=== PATIENT | female | born 1990 | race African-American/Black ===

== ENCOUNTER 2017-06-15 10:11 | Emergency (ER) | payer MEDICAID, SELFPAY ==
[2017-06-15 10:12] VITALS: BP 100/67; PULSE 65; RESP 17; TEMP 37.4; O2SAT 99; BMI 24.6
--- NOTE | 2017-06-15 10:23 | CT_ITS ---
STUDY: CT ABDOMEN AND PELVIS WITH CONTRAST REASON FOR EXAM: Female, 26 years old. Right lower quadrant pain. Vaginal bleeding. RADIATION DOSAGE (If Supplied By Facility): CTDIvol = ( 10.41 ) mGy, DLP = ( 378.26 ) mGycm TECHNIQUE: Transaxial images were obtained from the dome of the diaphragm to the symphysis pubis without oral contrast. 100 ml of Isovue 300 contrast was administered. Sagittal and coronal images were reconstructed. Individualized dose optimization techniques were used for this CT. COMPARISON: None. FINDINGS: The visualized lung bases are unremarkable. The visualized portions of the heart are within normal limits. Normal liver. Normal gallbladder and extrahepatic biliary system. Normal spleen. Normal pancreas. Normal bilateral adrenal glands. Normal right kidney. Normal left kidney. There is a small hiatal hernia. Normal small intestine. Normal colon. The appendix is visualized and appears normal. Small amount of free fluid in the right paracolic gutter. Inflammatory changes in the right lower quadrant. Normal abdominal aorta. Normal inferior vena cava. Normal retroperitoneum. Normal urinary bladder. Moderately enlarged inhomogeneous uterus with inhomogeneous enhancement. There is a 2.6 cm x 1.7 cm cyst in the left ovary. Small amount of free fluid in the cul-de-sac. Normal abdominal wall. Normal osseous structures. CT/Abdomen/Pelvis W IV Cont ONLY IMPRESSION: Inhomogeneous enlarged uterus with left ovarian cyst. Small amount of free fluid in the cul-de-sac and right paracolic gutter. Correlation with pelvic ultrasound is recommended. The appendix is visualized and appears to be unremarkable. If the pelvic ultrasound is unremarkable, a repeat CT scan following oral contrast is recommended. Electronically Signed: Ulises Montanez MD at 12:31 EST Tel [phone], Service support ,
--- NOTE | 2017-06-15 10:27 | ED.DCSUM_ITS ---
- ER Visit Summary Date of Service: 06/15/17 Chief Complaint: [] Abdominal pain History of Present Illness: The patient is a 26 F [] complaining of abdominal pain in the right lower quadrant since yesterday. Reports severe nausea, denies vomiting. Reports loose stool. Denies fever or chills. Does also report one episode of vaginal bleeding. No other complaints at this time. Physical Examination: [] Afebrile, vital signs stable. Young adult female no acute distress. Cardiovascular exam is regular rate and rhythm. Lungs are clear to auscultation. Abdomen is soft with tenderness in the right lower quadrant and right adnexa. There is mild voluntary guarding on exam. Remainder of exam is unremarkable. Test Results: [] CBC, BMP, UA all within normal limits. HCG negative. CT of the abdomen/pelvis with IV contrast shows an enlarged uterus with a left ovarian cyst with right free fluid in the paracolic gutter. Emergency Department Course and Treatment: [] Patient given intravenous fluids, morphine, Phenergan. On serial exam she had improvement of symptoms. CT does not reveal any significant acute pathology and patient was amenable to discharge and close follow-up with her DESIGN TECHNOLOGY TEACHER. Treatment Plan: [] Discharge, stable. Disposition: [] Discharge, stable. Impression: [] Abdominal pain Ovarian cyst This note was generated with [employer] dictation software. It may contain incorrect words, spelling, and punctuation that were not noted in review of the chart prior to signing ED Disposition - Plan for ED Patient: Chief Complaint: Abd Pain Referrals: Care Physician,No Primary [Primary Care Provider] -
[2017-06-15] MEDS: 0.9% Normal Saline 1,000 ML 1000 ML IV (10:54)
[2017-06-15 10:56] LABS: Absolute Lymphocyte Count 1.52 X10^3/ul (0.83-4.51); Absolute Neutrophil Count 1.9 X10^3/uL (2.0-7.7); Basophil# 0.01 X10^3/uL; Basophil% 0.3 % (0-1); Eosinophil# 0.04 X10^3/uL; Eosinophils% 1.1 % (0-5); Hematocrit 36.3 % (37-47); Hemoglobin 11.7 g/dl (12.0-15.0); Lymphocyte # 1.52 X10^3/ul (4.0); Mean Corp Hgb Conc 32.2 g/gl (32-36); Mean Corpuscular Volume 83.8 fL (81-99); Mean Platelet Vol. 9.8 fl (6.2-12.0); Monocyte% 7.9 % (0-10); Neutrophil # 1.93 X10^3/uL (2.7-7.7); Neutrophil % 50.7 % (47-70); Platelet Count 170 K/mm3 (150-450); RBC Distribution Width CV 13.5 % (11.6-14.6); RBC Distribution Width SD 41.1 fl (35.1-43.9); Red Blood Count 4.33 M/mm3 (4.2-5.4); White Blood Count 3.8 K/mm3 (4.4-11.0)
[2017-06-15 10:58] LABS: POSITIVE COUNT NO; POSITIVE DIFFERENTIAL NO; POSITIVE MORPHOLOGY NO
[2017-06-15 11:08] LABS: Anion Gap 6 (5-15); BUN 12 mg/dL (7-18); BUN/Creat Ratio 17.4 RATIO (10-20); Calcium,Total 8.4 mg/dL (8.5-10.1); Chloride 105 mmol/L (98-107); Creatinine, Serum 0.69 mg/dL (0.55-1.02); EST Glomerular Filtration Rate 111 mL/min (>60); Est Glom Filt Rate - Afr Amer 134 mL/min (>60); Glucose 78 mg/dL (74-106); Potassium 3.7 mmol/L (3.5-5.1); Sodium Level 139 mmol/L (136-145)
[2017-06-15 11:29] LABS: Pregnancy, Serum, hCG Quali. NEGATIVE Negative (0-9 Nonpreg)
[2017-06-15 12:08] LABS: Bacteria 0 SEEN /hpf (None Seen); Mucous, Urine 0 SEEN /hpf (<or=2+); Red Blood Cells-Urine 0 SEEN /hpf (0-5); White Blood Cells 0 SEEN /hpf (0-5)
[2017-06-15 12:09] LABS: Color, Urine Yellow (Yellow); Glucose, Dipstick Normal (Normal); Ketone-Dipstick Negative (Negative); Leukocyte Esterase-Dipstick Negative /ul (Negative); Nitrite-Dipstick Negative (Negative); Occult Blood-Urine 10 /ul (Negative); Protein-Dipstick Negative (Negative); Urine Bilirubin Dipstick Negative (Negative); Urine Clarity Clear (Clear); Urine Urobilinogen Normal (Normal); Urine pH 6.5 (5.0 - 8.0)
[2017-06-15 12:16] LABS: Squamous Epithelial Cells - UA 0-5 SEEN /hpf (5-10)
--- NOTE | 2017-06-15 12:57 | ED.DEP ---
ED Disposition - Plan for ED Patient: Chief Complaint: Abd Pain Instructions: ED Pelvic Pain [facility] Referrals: Care Physician,No Primary [Primary Care Provider] -
[2017-06-15 13:29] VITALS: BP 104/52; PULSE 60; RESP 16; O2SAT 100
== END 2017-06-15 13:29 | disposition home or self-care (01) ==
LOC: ED 10:31
PROVIDERS: Emergency Provider Emergency Medicine
DX: N83.202 Unspecified ovarian cyst, left side (principal); R10.31 Right lower quadrant pain
CPT/HCPCS: 74177; 80048; 81001; 84703; 85025; 96361; 96374; 96375; 99283; J7030; Q9967; A4216

== ENCOUNTER 2017-09-08 06:31 | Emergency (ER) | payer MEDICAID, SELFPAY ==
[2017-09-08 06:32] VITALS: BP 122/77; PULSE 71; RESP 16; TEMP 37.1; O2SAT 100; BMI 26.2
[2017-09-08 06:42] LABS: Absolute Lymphocyte Count 0.89 X10^3/ul (0.83-4.51); Absolute Neutrophil Count 1.5 X10^3/uL (2.0-7.7); Basophil# 0.01 X10^3/uL; Basophil% 0.4 % (0-1); Eosinophil# 0.02 X10^3/uL; Eosinophils% 0.7 % (0-5); Hematocrit 39.2 % (37-47); Hemoglobin 13.1 g/dl (12.0-15.0); Lymphocyte # 0.89 X10^3/ul (4.0); Lymphocyte % 33.1 % (19-41); Mean Corp Hgb Conc 33.4 g/gl (32-36); Mean Corpuscular Hgb 28.2 pg (27.0-32.0); Mean Corpuscular Volume 84.5 fL (81-99); Mean Platelet Vol. 9.3 fl (6.2-12.0); Monocyte# 0.28 X10^3/uL; Monocyte% 10.4 % (0-10); Neutrophil # 1.48 X10^3/uL (2.7-7.7); Platelet Count 179 K/mm3 (150-450); RBC Distribution Width CV 12.8 % (11.6-14.6); RBC Distribution Width SD 39.1 fl (35.1-43.9); Red Blood Count 4.64 M/mm3 (4.2-5.4); White Blood Count 2.7 K/mm3 (4.4-11.0)
[2017-09-08 06:44] LABS: POSITIVE COUNT NO; POSITIVE DIFFERENTIAL NO; POSITIVE MORPHOLOGY NO
[2017-09-08] MEDS: 0.9% Normal Saline 1,000 ML 1000 ML IV (06:46)
[2017-09-08 06:49] VITALS: BP 122/60; BP 127/69; BP 133/82; PULSE 62; PULSE 70; PULSE 85
--- NOTE | 2017-09-08 06:51 | ED.VISSUMM ---
- ER Visit Summary Date of Service: 09/08/17 Chief Complaint: Vaginal bleeding History of Present Illness: The patient is a 26 F presenting with vaginal bleeding. She states this is the normal time for her period but it is heavier than usual. It started yesterday. She denies possibility of . She has been lightheaded with no syncope. She states she has tried ibuprofen, Tylenol, Midol at home. She also complains of diffuse abdominal pain, nausea, vomiting, diarrhea. She has had one episode of both vomiting and diarrhea. Denies urinary complaints. Denies other complaints. Physical Examination: Vitals are stable. Patient is afebrile. Alert no acute distress. HEENT exam is unremarkable. Neck is supple. Lungs are clear and equal bilaterally. Heart is regular rate and rhythm. Abdomen is soft mild diffuse lower quadrant tenderness, no rebound or guarding. : small amount of blood in vaginal vault cleared with cotton tip swab. No active bleeding. No adnexal tenderness, no cervical motion tenderness Extremities are unremarkable. Skin is warm and dry. Remainder of exam is unremarkable. Emergency Department Course and Treatment: Patient given IV fluids, Toradol with improvement. Orthostatics are negative. CBC showed hemoglobin 13.1. HCG negative. Patient is resting comfortably on re-evaluation. Advised to follow-up with CHIEF OPERATOR. Advised return to ED if worsening complaints. Disposition: Discharge home Impression: Vaginal bleeding This note was generated with [employer] dictation software. It may contain incorrect words, spelling, and punctuation that were not noted in review of the chart prior to signing ED Disposition - Plan for ED Patient: Chief Complaint: Vag Bleeding Referrals: Care Physician,No Primary [Primary Care Provider] -
--- NOTE | 2017-09-08 06:54 | ED.DCSUM_ITS ---
- ER Visit Summary Date of Service: 09/08/17 Chief Complaint: Vaginal bleeding History of Present Illness: The patient is a 26 F presenting with vaginal bleeding. She states this is the normal time for her period but it is heavier than usual. It started yesterday. She denies possibility of . She has been lightheaded with no syncope. She states she has tried ibuprofen, Tylenol, Midol at home. She also complains of diffuse abdominal pain, nausea, vomiting, diarrhea. She has had one episode of both vomiting and diarrhea. Denies urinary complaints. Denies other complaints. Physical Examination: Vitals are stable. Patient is afebrile. Alert no acute distress. HEENT exam is unremarkable. Neck is supple. Lungs are clear and equal bilaterally. Heart is regular rate and rhythm. Abdomen is soft mild diffuse lower quadrant tenderness, no rebound or guarding. : small amount of blood in vaginal vault cleared with cotton tip swab. No active bleeding. No adnexal tenderness, no cervical motion tenderness Extremities are unremarkable. Skin is warm and dry. Remainder of exam is unremarkable. Emergency Department Course and Treatment: Patient given IV fluids, Toradol with improvement. Orthostatics are negative. CBC showed hemoglobin 13.1. HCG negative. Patient is resting comfortably on re-evaluation. Advised to follow- up with SOLDER MAKING SUPERVISOR. Advised return to ED if worsening complaints. Disposition: Discharge home Impression: Vaginal bleeding This note was generated with [employer] dictation software. It may contain incorrect words, spelling, and punctuation that were not noted in review of the chart prior to signing ED Disposition - Plan for ED Patient: Chief Complaint: Vag Bleeding Referrals: Care Physician,No Primary [Primary Care Provider] -
[2017-09-08] MEDS: Ketorolac 30 MG/ML Syringe IV (06:59)
[2017-09-08 07:07] LABS: Pregnancy, Serum, hCG Quali. NEGATIVE Negative (0-9 Nonpreg)
--- NOTE | 2017-09-08 07:19 | ED.DEP ---
ED Disposition - Plan for ED Patient: Chief Complaint: Vag Bleeding Instructions: ED Bleed Irregular Vaginal Referrals: Care Physician,No Primary [Primary Care Provider] - Josselin Gonzalez MD [STAFF PHYSICIAN] -
[2017-09-08 08:20] VITALS: BP 118/68; PULSE 72; RESP 18
== END 2017-09-08 08:22 | disposition home or self-care (01) ==
PROVIDERS: Emergency Provider Emergency Medicine
DX: N93.9 Abnormal uterine and vaginal bleeding, unspecified (principal)
CPT/HCPCS: 84703; 85025; 96361; 96374; 99285; J7030; A4216

== ENCOUNTER 2018-04-01 09:33 | Emergency (ER) | payer MEDICAID, SELFPAY ==
[2018-04-01 09:34] VITALS: BP 114/73; PULSE 122; RESP 18; TEMP 37.3; O2SAT 99; BMI 27.4
[2018-04-01] MEDS: Ketorolac 30 MG/ML Syringe IV (10:08)
[2018-04-01] MEDS: 0.9% Normal Saline 1,000 ML 1000 ML IV (10:08)
[2018-04-01] MEDS: MethylPREDNISolone 125 MG/2 ML Vial IV (10:08)
--- NOTE | 2018-04-01 10:08 | ED.DCSUM_ITS ---
- ER Visit Summary Date of Service: 04/01/18 Chief Complaint: Sore throat History of Present Illness: The patient is a 27 F he has had a sore throat for the past 3 days. She was seen at the urgent care on the and had a positive rapid strep test. She has been on amoxicillin. She is also on eyedrops for pinkeye. Patient states her throat pain is worse today. She has not been eating and drinking much. She was having fevers, but those seem to be resolved. Physical Examination: Blood pressure is 114/73, temperature 99.2 TA, heart rate 122, respiratory rate 18, pulse ox 99% on room air. Patient is sitting upright in the bed with the head of the bed elevated approximately 45 degrees. She speaks with a strong voice and is tolerating secretions well. Head and neck examination reveals dry mucous membranes. TMs are clear bilaterally. Uvula is midline. She has mild posterior pharyngeal irritation without significant edema. Heart is slightly tachycardic and regular. Lung sounds are clear. Abdomen is soft and nontender. Test Results: [] Emergency Department Course and Treatment: Patient was given a liter of IV fluids along with Toradol and Solu-Medrol. On repeat evaluation patient is really improved. Heart rate is 97. She will be discharged with instructions to increase fluids and use Tylenol or ibuprofen for pain. Treatment Plan: [] Disposition: Discharge Impression: Strep pharyngitis This note was generated with [employer] dictation software. It may contain incorrect words, spelling, and punctuation that were not noted in review of the chart prior to signing ED Disposition - Plan for ED Patient: Chief Complaint: Sore Throat Referrals: Care Physician,No Primary [Primary Care Provider] -
[2018-04-01 10:14] VITALS: RESP 16; TEMP 37.2
--- NOTE | 2018-04-01 10:58 | ED.DEP ---
ED Disposition - Plan for ED Patient: Disposition: Home or Assisted Living Chief Complaint: Sore Throat Instructions: ED Strep Pharyngitis Conf Referrals: Desi Morales, PUBLIC RELATIONS MANAGER-C [Nurse Practitioner] - 1 Week
--- NOTE | 2018-04-01 11:01 | DCINST.ED_ITS ---
ED Disposition - Plan for ED Patient: Disposition: Home or Assisted Living Chief Complaint: Sore Throat Instructions: ED Strep Pharyngitis Conf Referrals: Desi Morales, LIME MIXER-C [Nurse Practitioner] - 1 Week
[2018-04-01 11:17] VITALS: BP 124/80; PULSE 87; RESP 16; TEMP 36.6; TEMP 36.7; O2SAT 99
--- OUTSIDE RECORDS SUMMARY | 2018-07-04 13:05 | XMS RPT_ITS ---
:1990 Author Organization [facility] Care Team Providers Name Role Phone BESS SHEEHAN (COOKING TEACHER) Attending Unavailable Primay Care Physicia, No Primary Care Unavailable Sridevi Butt Attending Unavailable Primay Care Physicia, No Primary Care Unavailable Bryan Palencia Attending Unavailable Primay Care Physicia, No Primary Care Unavailable Wendi Henry Attending Unavailable PROBLEMS PROBLEMS No Problem Records FoundPROCEDURES PROCEDURES No Procedure Records FoundRESULTS RESULTS EMERGENCY DEPARTMENT Observed: 04/01/2018 Status: F Source: [place] SUMMARY 3:42 PM [facility] REPOSITORY [facility] Medical Records Department [address] [place] [address] Emergency Department Summary 04/01/18 1006 MR#: [id number] Acct: [id number] Name: SHARI SINHA Rep #: [id number] : 1990 27 From: Sridevi Butt MD PCP: Care Physician, No Primary Status: DEP ER - ER Visit Summary Date of Service: 04/01/18 Chief Complaint: Sore throat History of Present Illness: The patient is a 27 F he has had a sore throat for the past 3 days. She was seen at the urgent care on the and had a positive rapid strep test. She has been on amoxicillin. She is also on eyedrops for pinkeye. Patient states her throat pain is worse today. She has not been eating and drinking much. She was having fevers, but those seem to be resolved. Physical Examination: Blood pressure is 114/73, temperature 99.2 TA, heart rate 122, respiratory rate 18, pulse ox 99% on room air. Patient is sitting upright in the bed with the head of the bed elevated approximately 45 degrees. She speaks with a strong voice and is tolerating secretions well. Head and neck examination reveals dry mucous membranes. TMs are clear bilaterally. Uvula is midline. She has mild posterior pharyngeal irritation without significant edema. Heart is slightly tachycardic and regular. Lung sounds are clear. Abdomen is soft and nontender. Test Results: [] Emergency Department Course and Treatment: Patient was given a liter of IV fluids along with Toradol and Solu-Medrol. On repeat evaluation patient is really improved. Heart rate is 97. She will be discharged with instructions to increase fluids and use Tylenol or ibuprofen for pain. Treatment Plan: [] Disposition: Discharge Impression: Strep pharyngitis This note was generated with [employer] dictation software. It may contain incorrect words, spelling, and punctuation that were not noted in review of the chart prior to signing ED Disposition - Plan for ED Patient: Chief Complaint: Sore Throat Referrals: Care Physician,No Primary [Primary Care Provider] - What to do if you have Problems For any increased pain, shortness of breath, bleeding, nausea or vomiting, chest pain, or any unexpected problems, contact your Primary Care Provider. Call [facility] ([phone]) or report to the closest Emergency Room. Call 911 if necessary. 04/01/18 2048 <Electronically signed by Sridevi Butt MD> Date Sridevi Butt MD Cosigner Signature (If Indicated): Date CC: No Primary Care Physician DISCHARGE INSTRUCTION Observed: 04/01/2018 Status: F Source: [place] 11:01 AM [facility] REPOSITORY [facility] Medical Records Department [address] [place] [address] Discharge Instruction 04/01/18 1058 MR#: [id number] Acct: [id number] Name: SHAIR SINHA Rep #: [id number] : 1990 27 From: Sridevi Butt MD PCP: Care Physician, No Primary Status: REG ER ED Disposition - Plan for ED Patient: Disposition: Home or Assisted Living Chief Complaint: Sore Throat Instructions: ED Strep Pharyngitis Conf Referrals: Desi Morales, BOILER ROOM OPERATOR-C [Nurse Practitioner] - 1 Week What to do if you have Problems For any increased pain, shortness of breath, bleeding, nausea or vomiting, chest pain, or any unexpected problems, contact your Primary Care Provider. Call [facility] ([phone]) or report to the closest Emergency Room. Call 911 if necessary. 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 Denies any otc treatment for symptoms. Review of Systems Constitutional: Positive for fever. Negative for chills and malaise/fatigue. HENT: Negative for congestion, ear pain and sore throat. Eyes: Positive for discharge and redness. Respiratory: Negative for cough. Gastrointestinal: Positive for vomiting. Negative for abdominal pain, diarrhea and nausea. Musculoskeletal: Positive for myalgias. Skin: Negative for rash. Neurological: Positive for headaches. All other systems reviewed and are negative. PAST MEDICAL HISTORY Diagnosis Date - Allergic rhinitis, cause unspecified Allergic rhinitis - Asthma PAST SURGICAL HISTORY Procedure Laterality Date - REMOVAL ADENOIDS,PRIMARY,<12 Y/O 2000 Adenoidectomy ALLERGIES Enviromental [Other] MEDICATIONS amoxicillin (AMOXIL) 875 mg tablet Take 1 tablet by mouth twice daily for 10 days. FLUoxetine (PROZAC) 20 mg capsule Take 1 capsule by mouth once daily. lisdexamfetamine (VYVANSE) 20 mg capsule Take 1 capsule by mouth once daily for 30 days. ofloxacin (OCUFLOX) 0.3 % ophthalmic solution Use 2 Drops in both eyes four times daily for 5 days. FAMILY HISTORY Problem Relation Age of Onset - Diabetes Maternal Grandmother Social History Substance Use Topics - Smoking status: Never Smoker - Smokeless tobacco: Not on file - Alcohol use No Objective Physical Exam Constitutional: She is well-developed, well-nourished, and in no distress. HENT: Head: Normocephalic. Right Ear: Tympanic membrane, external ear and ear canal normal. Left Ear: Tympanic membrane, external ear and ear canal normal. Nose: Nose normal. Right sinus exhibits no maxillary sinus tenderness and no frontal sinus tenderness. Left sinus exhibits no maxillary sinus tenderness and no frontal sinus tenderness. Mouth/Throat: Posterior oropharyngeal erythema (soft palate petechiae) present. Eyes: Pupils are equal, round, and reactive to light. EOM are normal. Right eye exhibits discharge. Left eye exhibits discharge. Right conjunctiva is injected. Left conjunctiva is injected. Visual acuity intact Neck: Normal range of motion. Cardiovascular: Normal rate, regular rhythm and normal heart sounds. Pulmonary/Chest: Effort normal and breath sounds normal. No respiratory distress. She has no wheezes. Abdominal: Soft. Bowel sounds are normal. She exhibits no distension. There is no tenderness. Lymphadenopathy: She has no cervical adenopathy. Skin: Skin is warm and dry. No rash noted. Nursing note and vitals reviewed. ASSESSMENT/PLAN: 1. Strep pharyngitis - ICD9: 034.0, ICD10: J02.0 (primary diagnosis) - suspect strep - Rapid Strep positive in the office today - Amoxil - Discussed supportive care treatment with fluids, rest and analgesia. - The patient may also use warm salt water gargles, throat lozenges and/or OTC throat spray as needed. - The patient should follow up in 3-5 days if symptoms persist or worsen - Call back if drooling, increased temperature, symptoms of dehydration and/or still sick in one week - RAPID STREP TEST B/O 2. Acute bacterial conjunctivitis of both eyes - ICD9: 372.03, ICD10: H10.33 Bacterial - see medication orders - course and contagiousness issues discussed, including hand washing. - Instructed to call if high fever, development of periorbital redness or swelling, eye pain, visual changes, concerns or if symptoms persist. Prescription instructions reviewed with patient as applicable. Patient advised if symptoms do not improve or if symptoms worsen sooner, to contact their primary care physician. Potential red flag symptoms discussed with the patient. Reviewed appropriate action plan to take if red flag symptoms occur. Patient agreeable to treatment plan. Ruddy Ford APRN.CNP CNOV Observed: 03/30/2018 Status: COMPLETED Source: [place] 6:45 PM [facility] REPOSITORY Office Visit ([facility]) SHARI SINHA ([id number]) [address] [facility] Date Time Provider Department 03/30/18 6:45 PM RUDDY FORD (BOILER ROOM OPERATOR) [facility] During your visit today, we recorded the following information about you: Temperature Pulse Blood pressure Weight 101.2 degrees 86/minute 118/60 68.5 kg Ruddy Ford APRN.CNP 03/30/2018 7:21 PM Signed CONJUNCTIVITIS GENERAL INFORMATION: Conjunctivitis is also known as pink eye. It is an irritation of the underside of the eyelid and the white part of the eye. Conjunctivitis can be caused by infection, chemical irritation, or allergy. If infectious, it is very contagious. INSTRUCTIONS: The doctor has prescribed antibiotic drops or ointment. Use them as prescribed. Do not touch the dropper to the eye. Throw out the medication after completing treatment. If the doctor only prescribed the medication to be placed in one eye, and the other eye starts to bother you with the same symptoms, you may treat it in the same fashion. To ease discomfort, apply a warm or cool clean washcloth to your eye several times a day for 10 to 20 minutes. Gently wipe away discharge from the eyes with tissues. Wash your hands often with soap and use paper towels to dry them. Do not share towels, washcloths, or pillows. This could spread infection. Do not use eye make-up until the infection has resolved. Keep contact lenses out of eyes until the irritation is gone. Discard any eye make-up which you may have contaminated before the infection was diagnosed, and any eye make-up older than one year. Children should not return to school or daycare until the eye is no longer pink. Do not drive or operate machinery if your vision is blurred. Wear sunglasses if your eyes are sensitive to the light. CONTACT YOUR DOCTOR IF YOU OR YOUR CHILD NOTICE: *The eye is still pink 3 days after starting treatment with medicine. *Pain in the eye increases. *The redness is spreading. *Vision becomes blurred. *You have a temperature over 100.5 F (38 C). What is strep throat? Strep throat is an infection caused by a specific type of bacteria, Streptococcus. When your child has a strep throat, the tonsils are usually very inflamed, and the inflammation may affect the surrounding part of the throat as well. Symptoms Strep throat is caused by a bacterium called Streptococcus pyogenes. To some extent, the symptoms of strep throat depend on the child?s age. - Infants with strep infections may have only a low fever and a thickened or bloody nasal discharge. - Toddlers (ages one to three) also may have a thickened or bloody nasal discharge with a fever. Such children are usually quite cranky, have no appetite, and often have swollen glands in the neck. Sometimes toddlers will complain of tummy pain instead of a sore throat. - Children over three years of age with strep are often more ill; they may have an extremely painful throat, fever over 102 degrees Fahrenheit (38.9 degrees Celsius), swollen glands in the neck, and pus on the tonsils. It?s important to be able to distinguish a strep throat from a viral sore throat, because strep infections are treated with antibiotics. When to call the educator senior clinical If your child has a sore throat that persists (not one that goes away after her first drink in the morning), whether or not it is accompanied by fever, headache, stomachache, or extreme fatigue, you should call your educator senior clinical. That call should be made even more urgently if your child seems extremely ill, or if she has difficulty breathing or extreme trouble swallowing (causing her to drool). This may indicate a more serious infection. Treatment If the strep test shows that your child does have strep throat, your educator senior clinical will prescribe an antibiotic to be taken by mouth or by injection. If your child is given the oral medication, it?s very important that she take it for the full course, as prescribed, even if the symptoms get better or go away. If a child?s strep throat is not treated with antibiotics, or if she doesn?t complete the treatment, the infection may worsen or spread to other parts of her body, leading to conditions such as abscesses of the tonsils or kidney problems. Untreated strep infections also can lead to rheumatic fever, a disease that affects the heart. However, rheumatic fever is rare in the [place] and in children under five years old. Prevention Most types of throat infections are contagious, being passed primarily through the air on droplets of moisture or on the hands of infected children or adults. For that reason, it makes sense to keep your child away from people who have symptoms of this condition. However, most people are contagious before their first symptoms appear, so often there?s really no practical way to prevent your child from buffy the disease. In the past when a child had several sore throats, her tonsils might have been removed in an attempt to prevent further infections. But this operation, called a tonsillectomy, is recommended today only for the most severely affected children. Even in difficult cases, where there is repeated strep throat, antibiotic treatment is usually the best solution. 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 Denies any otc treatment for symptoms. Review of Systems Constitutional: Positive for fever. Negative for chills and malaise/fatigue. HENT: Negative for congestion, ear pain and sore throat. Eyes: Positive for discharge and redness. Respiratory: Negative for cough. Gastrointestinal: Positive for vomiting. Negative for abdominal pain, diarrhea and nausea. Musculoskeletal: Positive for myalgias. Skin: Negative for rash. Neurological: Positive for headaches. All other systems reviewed and are negative. PAST MEDICAL HISTORY Diagnosis Date - Allergic rhinitis, cause unspecified Allergic rhinitis - Asthma PAST SURGICAL HISTORY Procedure Laterality Date - REMOVAL ADENOIDS,PRIMARY,<12 Y/O 2000 Adenoidectomy ALLERGIES Enviromental [Other] MEDICATIONS amoxicillin (AMOXIL) 875 mg tablet Take 1 tablet by mouth twice daily for 10 days. FLUoxetine (PROZAC) 20 mg capsule Take 1 capsule by mouth once daily. lisdexamfetamine (VYVANSE) 20 mg capsule Take 1 capsule by mouth once daily for 30 days. ofloxacin (OCUFLOX) 0.3 % ophthalmic solution Use 2 Drops in both eyes four times daily for 5 days. FAMILY HISTORY Problem Relation Age of Onset - Diabetes Maternal Grandmother Social History Substance Use Topics - Smoking status: Never Smoker - Smokeless tobacco: Not on file - Alcohol use No Objective Physical Exam Constitutional: She is well-developed, well-nourished, and in no distress. HENT: Head: Normocephalic. Right Ear: Tympanic membrane, external ear and ear canal normal. Left Ear: Tympanic membrane, external ear and ear canal normal. Nose: Nose normal. Right sinus exhibits no maxillary sinus tenderness and no frontal sinus tenderness. Left sinus exhibits no maxillary sinus tenderness and no frontal sinus tenderness. Mouth/Throat: Posterior oropharyngeal erythema (soft palate petechiae) present. Eyes: Pupils are equal, round, and reactive to light. EOM are normal. Right eye exhibits discharge. Left eye exhibits discharge. Right conjunctiva is injected. Left conjunctiva is injected. Visual acuity intact Neck: Normal range of motion. Cardiovascular: Normal rate, regular rhythm and normal heart sounds. Pulmonary/Chest: Effort normal and breath sounds normal. No respiratory distress. She has no wheezes. Abdominal: Soft. Bowel sounds are normal. She exhibits no distension. There is no tenderness. Lymphadenopathy: She has no cervical adenopathy. Skin: Skin is warm and dry. No rash noted. Nursing note and vitals reviewed. ASSESSMENT/PLAN: 1. Strep pharyngitis - ICD9: 034.0, ICD10: J02.0 (primary diagnosis) - suspect strep - Rapid Strep positive in the office today - Amoxil - Discussed supportive care treatment with fluids, rest and analgesia. - The patient may also use warm salt water gargles, throat lozenges and/or OTC throat spray as needed. - The patient should follow up in 3-5 days if symptoms persist or worsen - Call back if drooling, increased temperature, symptoms of dehydration and/or still sick in one week - RAPID STREP TEST B/O 2. Acute bacterial conjunctivitis of both eyes - ICD9: 372.03, ICD10: H10.33 Bacterial - see medication orders - course and contagiousness issues discussed, including hand washing. - Instructed to call if high fever, development of periorbital redness or swelling, eye pain, visual changes, concerns or if symptoms persist. Prescription instructions reviewed with patient as applicable. Patient advised if symptoms do not improve or if symptoms worsen sooner, to contact their primary care physician. Potential red flag symptoms discussed with the patient. Reviewed appropriate action plan to take if red flag symptoms occur. Patient agreeable to treatment plan. Ruddy Ford, [place].COOKING TEACHER Referring Provider: SELF [200] Allergies As of Date: 03/30/2018 Noted Allergy Reaction ENVIROMENTAL [Other] 12/22/2005 5 - Intolerance Date Reviewed: 03/30/2018 Reviewed by: Ruddy Stanley (Luz Marina) Farhan - Fully Assessed Reason for Visit: Conjunctivitis [24] Cmt: times 2 days Vomiting [120] Cmt: started today Primary Visit Diagnosis:Strep pharyngitis [J02.0] Other Visit Diagnosis:Acute bacterial conjunctivitis of both eyes [H10.33] Order(s):RAPID STREP TEST B/O [[id number]] Order #: [id number] amoxicillin (AMOXIL) 875 mg tabletTake 1 tablet by mouth twice daily for 10 days.Disp: 20 tabletRfl: 0 ofloxacin (OCUFLOX) 0.3 % ophthalmic solutionUse 2 Drops in both eyes four times daily for 5 days.Disp: 1 BottleRfl: 0 Prescriptions as of 03/30/2018 Sig: AMOXICILLIN 875 MG TABLET Take 1 tablet by mouth twice * FLUOXETINE 20 MG CAPSULE Take 1 capsule by mouth once * LISDEXAMFETAMINE 20 MG CAPSULE Take 1 capsule by mouth once * OFLOXACIN 0.3 % EYE DROPS Use 2 Drops in both eyes four* Problem List As Of Date 03/30/2018 Noted Resolved ALLERGIC RHINITIS NOS [J30.9] INVALID FOR* ASTHMA UNSPECIFIED [J45.909] INVALID FOR* Adult attention deficit disorder [F98.8] INVALID FOR* Anxiety and depression [F41.9, F32.9] INVALID FOR* Other instructions from your clinician: CONJUNCTIVITIS GENERAL INFORMATION: Conjunctivitis is also known as pink eye. It is an irritation of the underside of the eyelid and the white part of the eye. Conjunctivitis can be caused by infection, chemical irritation, or allergy. If infectious, it is very contagious. INSTRUCTIONS: The doctor has prescribed antibiotic drops or ointment. Use them as prescribed. Do not touch the dropper to the eye. Throw out the medication after completing treatment. If the doctor only prescribed the medication to be placed in one eye, and the other eye starts to bother you with the same symptoms, you may treat it in the same fashion. To ease discomfort, apply a warm or cool clean washcloth to your eye several times a day for 10 to 20 minutes. Gently wipe away discharge from the eyes with tissues. Wash your hands often with soap and use paper towels to dry them. Do not share towels, washcloths, or pillows. This could spread infection. Do not use eye make-up until the infection has resolved. Keep contact lenses out of eyes until the irritation is gone. Discard any eye make-up which you may have contaminated before the infection was diagnosed, and any eye make-up older than one year. Children should not return to school or daycare until the eye is no longer pink. Do not drive or operate machinery if your vision is blurred. Wear sunglasses if your eyes are sensitive to the light. CONTACT YOUR DOCTOR IF YOU OR YOUR CHILD NOTICE: *The eye is still pink 3 days after starting treatment with medicine. *Pain in the eye increases. *The redness is spreading. *Vision becomes blurred. *You have a temperature over 100.5 F (38 C). What is strep throat? Strep throat is an infection caused by a specific type of bacteria, Streptococcus. When your child has a strep throat, the tonsils are usually very inflamed, and the inflammation may affect the surrounding part of the throat as well. Symptoms Strep throat is caused by a bacterium called Streptococcus pyogenes. To some extent, the symptoms of strep throat depend on the child?s age. - Infants with strep infections may have only a low fever and a thickened or bloody nasal discharge. - Toddlers (ages one to three) also may have a thickened or bloody nasal discharge with a fever. Such children are usually quite cranky, have no appetite, and often have swollen glands in the neck. Sometimes toddlers will complain of tummy pain instead of a sore throat. - Children over three years of age with strep are often more ill; they may have an extremely painful throat, fever over 102 degrees Fahrenheit (38.9 degrees Celsius), swollen glands in the neck, and pus on the tonsils. It?s important to be able to distinguish a strep throat from a viral sore throat, because strep infections are treated with antibiotics. When to call the educator senior clinical If your child has a sore throat that persists (not one that goes away after her first drink in the morning), whether or not it is accompanied by fever, headache, stomachache, or extreme fatigue, you should call your educator senior clinical. That call should be made even more urgently if your child seems extremely ill, or if she has difficulty breathing or extreme trouble swallowing (causing her to drool). This may indicate a more serious infection. Treatment If the strep test shows that your child does have strep throat, your educator senior clinical will prescribe an antibiotic to be taken by mouth or by injection. If your child is given the oral medication, it?s very important that she take it for the full course, as prescribed, even if the symptoms get better or go away. If a child?s strep throat is not treated with antibiotics, or if she doesn?t complete the treatment, the infection may worsen or spread to other parts of her body, leading to conditions such as abscesses of the tonsils or kidney problems. Untreated strep infections also can lead to rheumatic fever, a disease that affects the heart. However, rheumatic fever is rare in the [place] and in children under five years old. Prevention Most types of throat infections are contagious, being passed primarily through the air on droplets of moisture or on the hands of infected children or adults. For that reason, it makes sense to keep your child away from people who have symptoms of this condition. However, most people are contagious before their first symptoms appear, so often there?s really no practical way to prevent your child from buffy the disease. In the past when a child had several sore throats, her tonsils might have been removed in an attempt to prevent further infections. But this operation, called a tonsillectomy, is recommended today only for the most severely affected children. Even in difficult cases, where there is repeated strep throat, antibiotic treatment is usually the best solution. Prescriptions ordered this encounter Disp Refills Start End AMOXICILLIN 875 MG TABLET 20 t* 0 03/30/2018 04/09/2018 Route: ORAL Sig: Take 1 tablet by mouth twice daily for 10 days. OFLOXACIN 0.3 % EYE DROPS 1 Alexey* 0 03/30/2018 04/04/2018 Route: BOTH EYES Sig: Use 2 Drops in both eyes four times daily for 5 days. Disposition: Return if symptoms worsen or fail to improve. Follow-up and Disposition History Recorded Letter Text Ruddy Ford APRN.[facility] Urgent Care [address] [facility] [address] Dept: [phone] 03/30/2018 Shari Sinha [address] [facility] [id number] [facility] [id number] To Whom it May Concern: This is to certify that Shari Sinha was seen at our office for medical care. Shari may return to work on 04/01/2018. If you have any questions please feel free to call. Sincerely: Ruddy Ford APRN.[facility] Encounter Status:Closed by RUDDY FORD on 03/30/18 PROGRESS Observed: 11/03/2017 Status: COMPLETED Source: [place] 9:07 AM [facility] REPOSITORY HNO ID: [id number] Author: Bess Abbasi) Sissy Service: (none) Author Type: Nurse Practitioner Type: Progress Notes Filed: 11/03/2017 11:53 AM Note Text: This is a 26 year old female who presents today with: Patient presents with: Physical HISTORY OF PRESENT ILLNESS: Shari Sinha is a 26 year old female. 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 She would like to restart vyvanse and prozac. She reports she stopped these in February, for no reason in particular, just in a mood. 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 Refers that she has been having trouble with work and meeting deadlines and completing paperwork. She reports that she has been reprimanded for not having paperwork done. She reports that her boss told her that she needs to focus more. She also reports depression has been worse. She has been less social. Eating okay. Sleeping okay, other than she doesn't desire to get out of bed in the morning. Reports when on the medication, mood was better. She doesn't isolate/withdrawal so much when on the medication. She denies suicidal/homicidal ideation. CP PHQ9 04/15/2016 04/29/2016 09/01/2016 09/29/2016 11/03/2017 Little interest or pleasure 3 - Nearly every day 1 - Several days 3 - Nearly every day 1 - Several days 3 - Nearly every day Feeling down, depressed, hopeless 3 - Nearly every day 1 - Several days 3 - Nearly every day 1 - Several days 3 - Nearly every day Trouble falling or staying asleep, sleeping too much 3 - nearly every day 2 - More than half the days 1 - Several days 0 - Not at all 3 - nearly every day Feeling tired, having little energy 3 - Nearly every day 1 - Several days 3 - Nearly every day 2 - More than half the days 3 - Nearly every day Poor appetite or overeating 3 - Nearly every day 0 - Not at all 2 - More than half the days 2 - More than half the days 3 - Nearly every day Feeling bad about yourself, failure or you have let yourself/family down 3 - Nearly every day 1 - Several days 3 - Nearly every day 2 - More than half the days 3 - Nearly every day Trouble concentrating on things 3 - Nearly every day 1 - Several days 3 - Nearly every day 3 - Nearly every day 3 - Nearly every day Moving or speaking so slowly, or fidgety or restless 3 - Nearly every day 0 - Not at all 3 - Nearly every day 2 - More than half the days 3 - Nearly every day Thoughts that you would be better off , or of hurting yourself in some way 2 - More than half the days 1 - Several days 3 - Nearly every day 2 - More than half the days 1 - Several days How difficult have these problems made things Extremely difficult Somewhat difficult Extremely difficult Very difficult Interpretation of Total Score 20-27 Severe depression 5-9 Mild depression 20-27 Severe depression 15-19 Moderately severe depression 20-27 Severe depression MACY-7 ANXIETY SCALE 04/29/2016 09/01/2016 09/29/2016 11/03/2017 FEELING NERVOUS,ANXIOUS,OR ON EDGE 2 Over half the days 3 Nearly every day 3 Nearly every day 3 Nearly every day NOT BEING ABLE TO STOP OR CONTROL WORRYING 3 Nearly every day 3 Nearly every day 2 Over half the days 3 Nearly every day WORRYING TOO MUCH ABOUT DIFFERENT THINGS 3 Nearly every day 3 Nearly every day 3 Nearly every day 3 Nearly every day TROUBLE RELAXING 3 Nearly every day 3 Nearly every day 3 Nearly every day 3 Nearly every day BEING SO RESTLESS THAT IT'S HARD TO SIT STILL 1 Several days 3 Nearly every day 3 Nearly every day 3 Nearly every day BEING EASILY ANNOYED OR IRRITABLE 3 Nearly every day 3 Nearly every day 1 Several days 3 Nearly every day FEELING AFRAID IF SOMETHING AWFUL MIGHT HAPPEN 3 Nearly every day 3 Nearly every day 3 Nearly every day 3 Nearly every day GAD7 SCORE 18 21 18 21 IF YOU CHECKED OFF ANY PROBLEMS Very difficult Extremely difficult Very difficult REVIEW OF SYSTEMS GENERAL: No weight loss, malaise or fevers/chills HEENT: Negative for frequent or significant headaches, No changes in hearing or vision. NECK: Negative for lumps, goiter, pain and significant neck swelling RESPIRATORY: Negative for cough, hemoptysis, wheezing, dyspnea or shortness of breath CARDIOVASCULAR: Negative for chest pain, leg swelling, orthopnea, or palpitations GI: No nausea, vomiting, or diarrhea/constipation. No hematochezia/melena. No heartburn or reflux symptoms. : No history of dysuria, frequency or incontinence MUSCULOSKELETAL: Negative for joint pain or swelling. SKIN: Negative for lesions, rash, and itching ENDOCRINE: Negative for cold or heat intolerance, polyuria, polydipsia and goiter NEURO: No history of headaches, syncope, paralysis, seizures or tremors PAST MEDICAL HISTORY: PAST MEDICAL HISTORY Diagnosis Date - Allergic rhinitis, cause unspecified Allergic rhinitis - Asthma PAST SURGICAL HISTORY Procedure Laterality Date - REMOVAL ADENOIDS,PRIMARY,<14 Y/O 2000 Adenoidectomy ALLERGIES Enviromental [Other] MEDICATIONS Current Outpatient Prescriptions: lisdexamfetamine (VYVANSE) 30 mg capsule Take 1 capsule by mouth once daily. Ok to fill on or after 03/05/2017 FLUoxetine HCl (PROZAC) 40 mg capsule Take 1 capsule by mouth once daily. No current facility-administered medications for this visit. FAMILY HISTORY Problem Relation Age of Onset - Diabetes Maternal Grandmother Social History Marital status: Single Spouse name: Years of education: Number of children: Social History Main Topics Smoking status: Never Smoker Alcohol use: No Drug use: No EXAM: BP 110/72 (BP Site: Right Arm, BP Position: Sitting, BP Cuff Size: Regular Adult) Pulse 70 Resp 14 Ht 161.3 cm (5' 3.5) Wt 66.7 kg (147 lb) BMI 25.63 kg/m? PHYSICAL EXAM: General Appearance: Well appearing, alert, in no acute distress, well-hydrated, well nourished.. Skin: Skin color, texture, turgor normal, no suspicious rashes or lesions. Head: Normocephalic, no masses, lesions, tenderness or abnormalities. Eyes: Anicteric sclera. Extraocular movements are intact. . Neck: Supple, no adenopathy; thyroid symmetric, normal size. Lungs: Lungs clear to auscultation. No wheezing, rhonchi, rales. Heart: RRR without murmur, gallop, or rubs. No ectopy. Abdomen: Abdomen soft, non-tender. Bowel sounds normal. No masses, organomegaly. Extremities: No deformities, edema, skin discoloration, clubbing or cyanosis. Good capillary refill. Peripheral Pulses: Normal. Neurologic: Gait normal. ASSESSMENT/PLAN: 1. Physical exam, pre-employment - ICD9: V70.5, ICD10: Z02.1 (primary diagnosis) Healthy exam. Due for tdap. Form completed. - TDAP VACCINE AGE 7+ IM 2. Anxiety and depression - ICD9: 300.00, 311, ICD10: F41.9, F32.9 Restart prozac. Follow-up in a month. - FLUOXETINE 20 MG CAPSULE 3. Adult attention deficit disorder - ICD9: 314.00, ICD10: F98.8 Restart vyvanse. Medication contract signed. Recheck in a month. - LISDEXAMFETAMINE 20 MG CAPSULE Discussed treatment plan and patient voices understanding. Patient's questions answered appropriately. Medications and potential side effects were discussed and patient voices understanding. Return to the office as scheduled or as needed for worsening/no improvement. VENTURA GraciaOV Observed: 11/03/2017 Status: COMPLETED Source: [place] 9:00 AM [facility] REPOSITORY Office Visit (FAMPWS) SHARI SINHA ([id number]) [address] [facility] Date Time Provider Department 11/03/17 9:00 AM BESS SHEEHAN (KARLA) [facility] During your visit today, we recorded the following information about you: Pulse Respiration Blood pressure Weight 70/minute 14/minute 110/72 66.7 kg Height 1.613 m Bess Sheehan APRN.CNP 11/03/2017 11:53 AM Signed This is a 26 year old female who presents today with: Patient presents with: Physical HISTORY OF PRESENT ILLNESS: Shari M David is a 26 year old female. 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 She would like to restart vyvanse and prozac. She reports she stopped these in February, for no reason in particular, just in a mood. 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 Refers that she has been having trouble with work and meeting deadlines and completing paperwork. She reports that she has been reprimanded for not having paperwork done. She reports that her boss told her that she needs to focus more. She also reports depression has been worse. She has been less social. Eating okay. Sleeping okay, other than she doesn't desire to get out of bed in the morning. Reports when on the medication, mood was better. She doesn't isolate/withdrawal so much when on the medication. She denies suicidal/homicidal ideation. CP PHQ9 04/15/2016 04/29/2016 09/01/2016 09/29/2016 11/03/2017 Little interest or pleasure 3 - Nearly every day 1 - Several days 3 - Nearly every day 1 - Several days 3 - Nearly every day Feeling down, depressed, hopeless 3 - Nearly every day 1 - Several days 3 - Nearly every day 1 - Several days 3 - Nearly every day Trouble falling or staying asleep, sleeping too much 3 - nearly every day 2 - More than half the days 1 - Several days 0 - Not at all 3 - nearly every day Feeling tired, having little energy 3 - Nearly every day 1 - Several days 3 - Nearly every day 2 - More than half the days 3 - Nearly every day Poor appetite or overeating 3 - Nearly every day 0 - Not at all 2 - More than half the days 2 - More than half the days 3 - Nearly every day Feeling bad about yourself, failure or you have let yourself/family down 3 - Nearly every day 1 - Several days 3 - Nearly every day 2 - More than half the days 3 - Nearly every day Trouble concentrating on things 3 - Nearly every day 1 - Several days 3 - Nearly every day 3 - Nearly every day 3 - Nearly every day Moving or speaking so slowly, or fidgety or restless 3 - Nearly every day 0 - Not at all 3 - Nearly every day 2 - More than half the days 3 - Nearly every day Thoughts that you would be better off , or of hurting yourself in some way 2 - More than half the days 1 - Several days 3 - Nearly every day 2 - More than half the days 1 - Several days How difficult have these problems made things Extremely difficult Somewhat difficult Extremely difficult Very difficult Interpretation of Total Score 20-27 Severe depression 5-9 Mild depression 20-27 Severe depression 15-19 Moderately severe depression 20-27 Severe depression MACY-7 ANXIETY SCALE 04/29/2016 09/01/2016 09/29/2016 11/03/2017 FEELING NERVOUS,ANXIOUS,OR ON EDGE 2 Over half the days 3 Nearly every day 3 Nearly every day 3 Nearly every day NOT BEING ABLE TO STOP OR CONTROL WORRYING 3 Nearly every day 3 Nearly every day 2 Over half the days 3 Nearly every day WORRYING TOO MUCH ABOUT DIFFERENT THINGS 3 Nearly every day 3 Nearly every day 3 Nearly every day 3 Nearly every day TROUBLE RELAXING 3 Nearly every day 3 Nearly every day 3 Nearly every day 3 Nearly every day BEING SO RESTLESS THAT IT'S HARD TO SIT STILL 1 Several days 3 Nearly every day 3 Nearly every day 3 Nearly every day BEING EASILY ANNOYED OR IRRITABLE 3 Nearly every day 3 Nearly every day 1 Several days 3 Nearly every day FEELING AFRAID IF SOMETHING AWFUL MIGHT HAPPEN 3 Nearly every day 3 Nearly every day 3 Nearly every day 3 Nearly every day GAD7 SCORE 18 21 18 21 IF YOU CHECKED OFF ANY PROBLEMS Very difficult Extremely difficult Very difficult REVIEW OF SYSTEMS GENERAL: No weight loss, malaise or fevers/chills HEENT: Negative for frequent or significant headaches, No changes in hearing or vision. NECK: Negative for lumps, goiter, pain and significant neck swelling RESPIRATORY: Negative for cough, hemoptysis, wheezing, dyspnea or shortness of breath CARDIOVASCULAR: Negative for chest pain, leg swelling, orthopnea, or palpitations GI: No nausea, vomiting, or diarrhea/constipation. No hematochezia/melena. No heartburn or reflux symptoms. : No history of dysuria, frequency or incontinence MUSCULOSKELETAL: Negative for joint pain or swelling. SKIN: Negative for lesions, rash, and itching ENDOCRINE: Negative for cold or heat intolerance, polyuria, polydipsia and goiter NEURO: No history of headaches, syncope, paralysis, seizures or tremors PAST MEDICAL HISTORY: PAST MEDICAL HISTORY Diagnosis Date - Allergic rhinitis, cause unspecified Allergic rhinitis - Asthma PAST SURGICAL HISTORY Procedure Laterality Date - REMOVAL ADENOIDS,PRIMARY,<14 Y/O 2000 Adenoidectomy ALLERGIES Enviromental [Other] MEDICATIONS Current Outpatient Prescriptions: lisdexamfetamine (VYVANSE) 30 mg capsule Take 1 capsule by mouth once daily. Ok to fill on or after 03/05/2017 FLUoxetine HCl (PROZAC) 40 mg capsule Take 1 capsule by mouth once daily. No current facility-administered medications for this visit. FAMILY HISTORY Problem Relation Age of Onset - Diabetes Maternal Grandmother Social History Marital status: Single Spouse name: Years of education: Number of children: Social History Main Topics Smoking status: Never Smoker Alcohol use: No Drug use: No EXAM: BP 110/72 (BP Site: Right Arm, BP Position: Sitting, BP Cuff Size: Regular Adult) Pulse 70 Resp 14 Ht 161.3 cm (5' 3.5) Wt 66.7 kg (147 lb) BMI 25.63 kg/m? PHYSICAL EXAM: General Appearance: Well appearing, alert, in no acute distress, well-hydrated, well nourished.. Skin: Skin color, texture, turgor normal, no suspicious rashes or lesions. Head: Normocephalic, no masses, lesions, tenderness or abnormalities. Eyes: Anicteric sclera. Extraocular movements are intact. . Neck: Supple, no adenopathy; thyroid symmetric, normal size. Lungs: Lungs clear to auscultation. No wheezing, rhonchi, rales. Heart: RRR without murmur, gallop, or rubs. No ectopy. Abdomen: Abdomen soft, non-tender. Bowel sounds normal. No masses, organomegaly. Extremities: No deformities, edema, skin discoloration, clubbing or cyanosis. Good capillary refill. Peripheral Pulses: Normal. Neurologic: Gait normal. ASSESSMENT/PLAN: 1. Physical exam, pre-employment - ICD9: V70.5, ICD10: Z02.1 (primary diagnosis) Healthy exam. Due for tdap. Form completed. - TDAP VACCINE AGE 7+ IM 2. Anxiety and depression - ICD9: 300.00, 311, ICD10: F41.9, F32.9 Restart prozac. Follow-up in a month. - FLUOXETINE 20 MG CAPSULE 3. Adult attention deficit disorder - ICD9: 314.00, ICD10: F98.8 Restart vyvanse. Medication contract signed. Recheck in a month. - LISDEXAMFETAMINE 20 MG CAPSULE Discussed treatment plan and patient voices understanding. Patient's questions answered appropriately. Medications and potential side effects were discussed and patient voices understanding. Return to the office as scheduled or as needed for worsening/no improvement. Bess Sheehan APRN.KARLA Sheehan APRN.KARLA 11/03/2017 9:32 AM Signed 1. Recheck in 1 month. Referring Provider: SELF [[id number]] Allergies As of Date: 11/03/2017 Noted Allergy Reaction ENVIROMENTAL [Other] 12/22/2005 5 - Intolerance Date Reviewed: 11/03/2017 Reviewed by: Mayra Hopper Cutting Pressman - Fully Assessed Reason for Visit: Physical [83] Primary Visit Diagnosis:Physical exam, pre-employment [Z02.1] Other Visit Diagnoses:Anxiety and depression [F41.9, F32.9] Adult attention deficit disorder [F98.8] Order(s):TDAP VACCINE AGE 7+ IM [[id number]] Order #: [id number] lisdexamfetamine (VYVANSE) 20 mg capsuleTake 1 capsule by mouth once daily for 30 days.Disp: 30 capsuleRfl: 0 FLUoxetine (PROZAC) 20 mg capsuleTake 1 capsule by mouth once daily.Disp: 30 capsuleRfl: 3 Prescriptions as of 11/03/2017 Sig: LISDEXAMFETAMINE 20 MG CAPSULE Take 1 capsule by mouth once * FLUOXETINE 20 MG CAPSULE Take 1 capsule by mouth once * Problem List As Of Date 11/03/2017 Noted Resolved ALLERGIC RHINITIS NOS [J30.9] INVALID FOR* ASTHMA UNSPECIFIED [J45.909] INVALID FOR* Adult attention deficit disorder [F98.8] INVALID FOR* Anxiety and depression [F41.9, F32.9] INVALID FOR* Other instructions from your clinician: 1. Recheck in 1 month. Prescriptions ordered this encounter Disp Refills Start End LISDEXAMFETAMINE 20 MG CAPSULE 30 c* 0 11/03/2017 12/03/2017 Class: Print RX Route: ORAL Sig: Take 1 capsule by mouth once daily for 30 days. FLUOXETINE 20 MG CAPSULE 30 c* 3 11/03/2017 Route: ORAL Sig: Take 1 capsule by mouth once daily. Medications Discontinued During This Encounter lisdexamfetamine (VYVANSE) 30 mg cap* 30 c* 0 01/06/2017 11/03/2017 Class: Print RX Route: ORAL Sig: Take 1 capsule by mouth once daily. Ok to fill on or after 03/05/2017 Disc: Reason for discontinue is not on file. FLUoxetine HCl (PROZAC) 40 mg capsule 30 c* 2 01/03/2017 11/03/2017 Route: ORAL Sig: Take 1 capsule by mouth once daily. Disc: Other lisdexamfetamine (VYVANSE) 30 mg cap* 30 c* 0 02/16/2017 11/03/2017 Class: Print RX Route: ORAL Sig: Take 1 capsule by mouth once daily for 30 days. Ok to fill on or after 02/16/2017 Disc: Reason for discontinue is not on file. lisdexamfetamine (VYVANSE) 30 mg cap* 30 c* 0 11/30/2016 11/03/2017 Class: Print RX Route: ORAL Sig: Take 1 capsule by mouth once daily for 30 days. Disc: Reason for discontinue is not on file. lisdexamfetamine (VYVANSE) 30 mg cap* 30 c* 0 10/31/2016 11/03/2017 Class: Print RX Route: ORAL Sig: Take 1 capsule by mouth once daily for 30 days. Disc: Reason for discontinue is not on file. lisdexamfetamine (VYVANSE) 20 mg cap* 30 c* 0 07/15/2016 11/03/2017 Class: Print RX Route: ORAL Sig: Take 1 capsule by mouth once daily for 30 days. Disc: Reason for discontinue is not on file. lisdexamfetamine (VYVANSE) 20 mg cap* 30 c* 0 06/15/2016 11/03/2017 Class: Print RX Route: ORAL Sig: Take 1 capsule by mouth once daily for 30 days. Disc: Reason for discontinue is not on file. lisdexamfetamine (VYVANSE) 20 mg cap* 30 c* 0 05/16/2016 11/03/2017 Class: Print RX Route: ORAL Sig: Take 1 capsule by mouth once daily for 30 days. Disc: Reason for discontinue is not on file. Disposition: Return in about 1 month (around 12/04/2017), or if symptoms worsen or fail to improve. Follow-up and Disposition History Recorded Questionnaire: MACY-7 ANXIETY SCALE Feeling nervous, anxious, or on edge -> 3 Nearly every day Not being able to stop or control worrying -> 3 Nearly every day Worrying too much about different things -> 3 Nearly every day Trouble relaxing -> 3 Nearly every day Being so restless that it's hard to sit still -> 3 Nearly every day Being easily annoyed or irritable -> 3 Nearly every day Feeling afraid as if something awful might happen -> 3 Nearly every day MACY-7 Anxiety Score -> 21 Letter Text [facility] Controlled Substance Agreement Purpose The purpose of this agreement is to prevent misunderstandings about certain medicines you will be taking for ADD management. It will help both you and your doctor to comply with laws regarding controlled pharmaceuticals. I understand that this agreement is essential to the trust and confidence necessary in a doctor/patient relationship and that my doctor undertakes to treat me based on this agreement. AGREEMENT I, Shari David, understand that if I break this agreement, my doctor will stop prescribing these medicines. In this case, my doctor will taper off the medicine over a period of several days, as necessary, to avoid withdrawal symptoms. A drug-dependence treatment program may be recommended. In certain cases, you may be terminated as a patient. I will communicate fully with my doctor about the character and intensity of my symptoms, its effect on my daily life, and how well the medicine is helping to relieve the pain. I will not use any illegal controlled substances, including marijuana, cocaine, etc. Random urine and/or serum toxicology screens may be requested; this testing may be unannounced and occur at any time. I agree that I will submit to a blood or urine test if requested by my doctor to determine my compliance with my program medicine. I will not share, sell or trade my medication with anyone. I will not attempt to obtain any controlled substance from any other doctor, other than a covering physician. I will safeguard my medicine from loss or theft. Lost or stolen medicines may not be replaced. I agree that refills of my prescriptions for medicine will be made only at the time of an office visit or during regular office hours. No refills will be available on evenings or weekends. I authorize the doctor and my pharmacy to cooperate fully with any city, state or federal law enforcement agency, including this state's Board of Pharmacy, in the investigation of any possible misuse, sale, or other diversion of my medication. I authorize my doctor to provide a copy of this Agreement to my pharmacy. I agree to waive any applicable privilege or right of privacy or confidentiality with respect to these authorizations. I agree that I will use my medicine at a rate no greater than the prescribed rate and that use of my medicine at a greater rate may result in my being without medication for a period of time. If legal authorities have questions concerning treatment, for example, if a patient were obtaining medications at several pharmacies, all confidentiality is waived and the authorities may be given full access to the [facility] Records of narcotic administration. I agree to follow these guidelines and they have been fully explained to me. All of my questions and concerns regarding treatment have been answered. A copy of this document has been given to me. Pharmacy: [facility] Location: ____[place] Phone number: Patient: Date: November 03, 2017 Shari Sinha [id number] Physician: Date: November 03, 2017 Bess Sheehan APRN.COOKING TEACHER Information regarding Controlled Substance Prescriptions: Please read carefully. Strong pain medications such as Tramadol, Narcotic analgesics are helpful to control a severe pain when it is difficult to control with simple pain medications, but they can cause problems if taken for too long. The goal of treatment is to control the pain to a level where you will be able to function. The long-term use of such substances as opioids (narcotic analgesics), benzodiazepine tranquilizers, and barbiturate sedatives is controversial because of uncertainty regarding the extent to which they actually improve the lives of those receiving them in bed bug exterminator use. Some people receive prolonged benefit and others do not. Some may actually have an increase in pain. There is also the risk of developing addiction or causing relapse of addiction. It is important that you know the side effects of these medications including: Excessive doses suppress breathing and may be fatal. This is especially true if the person is a child. Drowsiness and impaired concentration may create danger with driving or operating machinery, especially shortly after dose increases. Some people describe lasting feelings of reduced alertness and concentration. Toxicity is much more likely if the drug is combined with tranquilizers or sedatives, so the user must never do this Constipation is most common. Stool softeners or other agents are then required. If these drugs are taken regularly during the latter months of , the child will probably be born physically dependent on them. Many deaths have occurred because of abuse of these medications, often by people other than those for whom they were prescribed, or because of combining them with other substances. Therefore, strict accountability is necessary. The following policies are agreed to by the treatment recipient. Selling or giving away this medication is against the law and may cause harm or to the person who receives it. Thus you must never give controlled substances to anyone else, even if he or she has the same symptoms as you. It is equally important that you secure your medications so that no one else can access them. Workers in the home, friends of children, and visitors can be expected to look through medicine cabinets and take drugs of abuse. Medications should not be left in sight in hotel rooms, unoccupied cars, etc. Should a child accidentally ingest one of your pills, obtain emergency medical care immediately. A good rule of thumb is not to put the medication any place you would not leave $1000 in pack. A small, inexpensive safe or lockable cabinet is a good idea. Because diverted / stolen opioids are causing an epidemic of deaths in the , lost or stolen medications will not be replaced. It is your responsibility to safeguard them. In addition [place] law requires certain procedures for the prescription of controlled substances which will be discussed. Encounter Status:Closed by BESS SHEEHAN CNP on 11/03/17 DISCHARGE INSTRUCTION Observed: 09/08/2017 Status: F Source: [place] 7:20 AM [facility] REPOSITORY [facility] Medical Records Department [address] [place] [address] Discharge Instruction 09/08/17 0719 MR#: [id number] Acct: [id number] Name: SHARI SINHA Rep #: [id number] : 1990 26 From: Wendi Henry MD PCP: Patricia Schultz, No Primary Status: REG ER ED Disposition - Plan for ED Patient: Chief Complaint: Vag Bleeding Instructions: ED Bleed Irregular Vaginal Referrals: Care Physician,No Primary [Primary Care Provider] - Josselin Gonzalez MD [STAFF PHYSICIAN] - What to do if you have Problems For any increased pain, shortness of breath, bleeding, nausea or vomiting, chest pain, or any unexpected problems, contact your Primary Care Provider. Call [facility] ([phone]) or report to the closest Emergency Room. Call 911 if necessary. 09/08/17 07 <Electronically signed by Wendi Henry MD> Date Wendi Henry MD Cosigner Signature (If Indicated): Date CC: No Primary Care Physician EMERGENCY DEPARTMENT Observed: 09/08/2017 Status: F Source: [place] SUMMARY 7:[address] [facility] Medical Records Department [address] [place] [address] Emergency Department Summary 09/08/17 0651 MR#: [id number] Acct: [id number] Name: SHARI SINHA Rep #: [id number] : 1990 26 From: Wendi Henry MD PCP: Patricia Schultz, No Primary Status: REG ER - ER Visit Summary Date of Service: 09/08/17 Chief Complaint: Vaginal bleeding History of Present Illness: The patient is a 26 F presenting with vaginal bleeding. She states this is the normal time for her period but it is heavier than usual. It started yesterday. She denies possibility of . She has been lightheaded with no syncope. She states she has tried ibuprofen, Tylenol, Midol at home. She also complains of diffuse abdominal pain, nausea, vomiting, diarrhea. She has had one episode of both vomiting and diarrhea. Denies urinary complaints. Denies other complaints. Physical Examination: Vitals are stable. Patient is afebrile. Alert no acute distress. HEENT exam is unremarkable. Neck is supple. Lungs are clear and equal bilaterally. Heart is regular rate and rhythm. Abdomen is soft mild diffuse lower quadrant tenderness, no rebound or guarding. : small amount of blood in vaginal vault cleared with cotton tip swab. No active bleeding. No adnexal tenderness, no cervical motion tenderness Extremities are unremarkable. Skin is warm and dry. Remainder of exam is unremarkable. Emergency Department Course and Treatment: Patient given IV fluids, Toradol with improvement. Orthostatics are negative. CBC showed hemoglobin 13.1. HCG negative. Patient is resting comfortably on re-evaluation. Advised to follow-up with [employer]. Advised return to ED if worsening complaints. Disposition: Discharge home Impression: Vaginal bleeding This note was generated with Microsaic dictation software. It may contain incorrect words, spelling, and punctuation that were not noted in review of the chart prior to signing ED Disposition - Plan for ED Patient: Chief Complaint: Vag Bleeding Referrals: Care Physician,No Primary [Primary Care Provider] - What to do if you have Problems For any increased pain, shortness of breath, bleeding, nausea or vomiting, chest pain, or any unexpected problems, contact your Primary Care Provider. Call [facility] ([phone]) or report to the closest Emergency Room. Call 911 if necessary. 09/08/17 0717 <Electronically signed by Wendi Henry MD> Date Wendi Henry MD Cosigner Signature (If Indicated): Date CC: No Primary Care Physician CBC W/DIFF, AUTOMATED Collected: 09/08/2017 Status: F Source: [place] 6:35 AM [facility] REPOSITORY TYPE CODE TESTS RESULT OUT OF RANGE REFERENCE UNITS LAB L100.1000 4.4-11.0 K/mm3 Low WBC 2.7 LAB L100.1200 4.2-5.4 M/mm3 Normal RBC 4.64 LAB L100.1300 12.0-15.0 g/dl Normal HGB 13.1 LAB L100.1400 37-47 % Normal HCT 39.2 LAB L100.1500 81-99 fL Normal MCV 84.5 LAB L100.1600 27.0-32.0 pg Normal MCH 28.2 LAB L100.1700 32-36 g/gl Normal MCHC 33.4 LAB L100.1810 11.6-14.6 % Normal RDW CV 12.8 LAB L100.1820 35.1-43.9 fl Normal RDW SD 39.1 LAB L100.1900 150-450 K/mm3 Normal PLT 179 LAB L100.2000 6.2-12.0 fl Normal MPV 9.3 LAB L100.2100 47-70 % Normal NEUT% 55.0 LAB L100.2200 19-41 % Normal LY% 33.1 LAB L100.2300 0-10 % High MONO% 10.4 LAB L100.2400 0-5 % Normal EO% 0.7 LAB L100.2500 0-1 % Normal BASO% 0.4 LAB L100.2550 0.0-0.9 % Normal IM GRAN % 0.400 Result Comment: IG% - Immature Granulocytes (promyelocytes, myelocytes and metamyelocytes) > 1% indicates that a LEFT SHIFT is Present. LAB L100.2620 2.0-7.7 X10 3/uL Low Absolute Neut 1.5 LAB L100.2720 0.83-4.51 X10 3/ul Normal Absolute Lymph 0.89 Performed By: #### L100.0100 #### [facility] [address] [place], [place], [id number] ,SERUM,HCG QUALI. Collected: Status: F Source: [place] 09/08/2017 6:35 AM [facility] REPOSITORY TYPE CODE TESTS RESULT OUT OF REFERENCE UNITS RANGE LAB L700.6700 =>Qualitative mIU/mL Normal HCG Qual < 1 triggr LAB L700.7000 0-9 Nonpreg Negative Normal HCGSQUAL NEGATIVE Performed By: #### L700.6800 #### [facility] [address] [place], [address] EMERGENCY DEPARTMENT Observed: 06/15/2017 Status: F Source: [place] SUMMARY 5:12 PM [facility] REPOSITORY [facility] Medical Records Department [address] [place] [address] Emergency Department Summary 06/15/17 1026 MR#: [id number] Acct: [id number] Name: SHARI SINHA Rep #: [id number] : 1990 26 From: Bryan Palencia DO PCP: Care Physician, No Primary Status: DEP ER - ER Visit Summary Date of Service: 06/15/17 Chief Complaint: [] Abdominal pain History of Present Illness: The patient is a 26 F [] complaining of abdominal pain in the right lower quadrant since yesterday. Reports severe nausea, denies vomiting. Reports loose stool. Denies fever or chills. Does also report one episode of vaginal bleeding. No other complaints at this time. Physical Examination: [] Afebrile, vital signs stable. Young adult female no acute distress. Cardiovascular exam is regular rate and rhythm. Lungs are clear to auscultation. Abdomen is soft with tenderness in the right lower quadrant and right adnexa. There is mild voluntary guarding on exam. Remainder of exam is unremarkable. Test Results: [] CBC, BMP, UA all within normal limits. HCG negative. CT of the abdomen/pelvis with IV contrast shows an enlarged uterus with a left ovarian cyst with right free fluid in the paracolic gutter. Emergency Department Course and Treatment: [] Patient given intravenous fluids, morphine, Phenergan. On serial exam she had improvement of symptoms. CT does not reveal any significant acute pathology and patient was amenable to discharge and close follow-up with her [employer]. Treatment Plan: [] Discharge, stable. Disposition: [] Discharge, stable. Impression: [] Abdominal pain Ovarian cyst This note was generated with Microsaic dictation software. It may contain incorrect words, spelling, and punctuation that were not noted in review of the chart prior to signing ED Disposition - Plan for ED Patient: Chief Complaint: Abd Pain Referrals: Care Physician,No Primary [Primary Care Provider] - What to do if you have Problems For any increased pain, shortness of breath, bleeding, nausea or vomiting, chest pain, or any unexpected problems, contact your Primary Care Provider. Call [facility] ([phone]) or report to the closest Emergency Room. Call 911 if necessary. 06/15/17 1712 <Electronically signed by Bryan Palencia DO> Date Bryan Palencia DO Cosigner Signature (If Indicated): Date CC: No Primary Care Physician DISCHARGE INSTRUCTION Observed: 06/15/2017 Status: F Source: [place] 12:58 PM [facility] REPOSITORY [facility] Medical Records Department [address] [place] [address] Discharge Instruction 06/15/17 1257 MR#: [id number] Acct: [id number] Name: SHARI SINHA Rep #: [id number] : 1990 26 From: Bryan Palencia DO PCP: Care Physician, No Primary Status: REG ER ED Disposition - Plan for ED Patient: Chief Complaint: Abd Pain Instructions: ED Pelvic Pain [facility] Referrals: Care Physician,No Primary [Primary Care Provider] - What to do if you have Problems For any increased pain, shortness of breath, bleeding, nausea or vomiting, chest pain, or any unexpected problems, contact your Primary Care Provider. Call [facility] ([phone]) or report to the closest Emergency Room. Call 911 if necessary. 06/15/17 1258 <Electronically signed by Bryan Palencia DO> Date Bryan Palencia DO Cosigner Signature (If Indicated): Date CC: No Primary Care Physician URINALYSIS, COMPLETE Collected: 06/15/2017 Status: F Source: [place] 12:00 PM [facility] REPOSITORY Order Comment: Order Date: 06/15/17 How was Urine Obtained? CLEAN CATCH TYPE CODE TESTS RESULT OUT OF RANGE REFERENCE UNITS LAB L400.3000 Yellow COLOR Normal Yellow LAB L400.3050 Clear Normal CLARITY Clear LAB L400.3200 Normal mg/dl Normal GLUCOSE, UR Normal LAB L400.3300 Negative mg/dL Normal BILIRUBIN URINE Negative LAB L400.3400 Negative mg/dl Normal KETONE UR Negative LAB L400.3465 1.002-1.030 Normal SP.GR. DIPSTX 1.010 LAB L400.3550 5.0 - 8.0 pH UR Normal 6.5 LAB L400.3600 Negative mg/dl PROT Normal DIPSTX Negative LAB L400.3700 Normal mg/dl Normal UROBILI Normal LAB L400.3750 Negative Normal NITRITE UR Negative LAB L400.3780 Negative /ul High 10 OCCULT BLOOD-UR LAB L400.3800 Negative /ul LEUK Normal ESTERASE Negative LAB L400.4050 0-5 /hpf WBC 0 Normal SEEN LAB L400.4100 0-5 /hpf 0 Normal RBC-UA SEEN LAB L400.4150 5-10 /hpf SQUAM Normal EPI 0-5 SEEN LAB L400.4300 None Seen /hpf 0 Normal BACTERIA SEEN LAB L400.4350 <or=2+ /hpf 0 Normal MUCUS, URINE SEEN Performed By: #### L400.0001 #### [facility] [address] [facility] [place], [place], [id number] CBC W/DIFF, AUTOMATED Collected: 06/15/2017 Status: F Source: [place] 10:40 AM [facility] REPOSITORY TYPE CODE TESTS RESULT OUT OF RANGE REFERENCE UNITS LAB L100.1000 4.4-11.0 K/mm3 Low WBC 3.8 LAB L100.1200 4.2-5.4 M/mm3 Normal RBC 4.33 LAB L100.1300 12.0-15.0 g/dl Low HGB 11.7 LAB L100.1400 37-47 % Low HCT 36.3 LAB L100.1500 81-99 fL Normal MCV 83.8 LAB L100.1600 27.0-32.0 pg Normal MCH 27.0 LAB L100.1700 32-36 g/gl Normal MCHC 32.2 LAB L100.1810 11.6-14.6 % Normal RDW CV 13.5 LAB L100.1820 35.1-43.9 fl Normal RDW SD 41.1 LAB L100.1900 150-450 K/mm3 Normal PLT 170 LAB L100.2000 6.2-12.0 fl Normal MPV 9.8 LAB L100.2100 47-70 % Normal NEUT% 50.7 LAB L100.2200 19-41 % Normal LY% 40.0 LAB L100.2300 0-10 % Normal MONO% 7.9 LAB L100.2400 0-5 % Normal EO% 1.1 LAB L100.2500 0-1 % Normal BASO% 0.3 LAB L100.2550 0.0-0.9 % Normal IM GRAN % 0.000 Result Comment: IG% - Immature Granulocytes (promyelocytes, myelocytes and metamyelocytes) > 1% indicates that a LEFT SHIFT is Present. LAB L100.2620 2.0-7.7 X10 3/uL Low Absolute Neut 1.9 LAB L100.2720 0.83-4.51 X10 3/ul Normal Absolute Lymph 1.52 Performed By: #### L100.0100 #### [facility] [address] [place], [place], [address] BASIC METABOLIC Collected: 06/15/2017 Status: F Source: [place] PROFILE ([facility]) 10:40 AM [facility] REPOSITORY TYPE CODE TESTS RESULT OUT OF RANGE REFERENCE UNITS LAB L501.0100 74-106 mg/dL Normal GLU 78 Result Comment: Please note revised GLUCOSE reference range effective 2017. LAB L501.1000 7-18 mg/dL Normal BUN 12 LAB L501.1100 0.55-1.02 mg/dL Normal CREAT,SERUM 0.69 Result Comment: The validity of the calculated GFR AND GFRAA in patients over 70 years has not been determined. Clinical correlation is essential. LAB L501.1110 >60 mL/min Normal EST GFR 111 Result Comment: Non- GFR Calc LAB L501.1115 >60 mL/min Normal EST GFR - AA 134 Result Comment: GFR Calc LAB L501.1255 ml/min Normal Estimated CRCL 104.00 LAB L501.1300 10-20 RATIO BUN/CRE Normal 17.4 LAB L501.2200 8.5-10 mg/dL Low .1 CA 8.4 LAB L501.5300 136-14 mmol/L 5 NA Normal 139 LAB L501.5600 3.5-5. mmol/L 1 K Normal 3.7 LAB L501.5900 98-107 mmol/L CL Normal 105 LAB L501.6100 21.0-3 mmol/L 2.0 CO2 Normal 28.0 LAB L501.6200 5-15 GAP Normal 6 Performed By: #### L500.2500 #### [facility] [address] [place], [place], [address] ,SERUM,HCG QUALI. Collected: Status: F Source: [place] 06/15/2017 10:40 AM [facility] REPOSITORY TYPE CODE TESTS RESULT OUT OF REFERENCE UNITS RANGE LAB L700.6700 =>Qualitative mIU/mL Normal HCG Qual < 1 triggr LAB L700.7000 0-9 Nonpreg Negative Normal HCGSQUAL NEGATIVE Performed By: #### L700.6800 #### [facility] [address] [facility] [place], [place], [address] ABDOMEN/PELVIS W IV CONT Observed: 06/15/2017 Status: F Source: [place] ONLY 10:25 AM [facility] REPOSITORY [facility] Imaging Services [address] [place] [address] Abdomen/Pelvis W IV Cont ONLY MR#: [id number] Acct: [id number] Name: SHARI SINHA Rep #: [id number] : 1990 F 26 From: Ulises Montanez MD PCP: Care Physician, No Primary Status: REG ER Study: Abdomen/Pelvis W IV Cont ONLY Date of Exam: 06/15/17 Exam# [id number] Ordering Dr: Bryan Palencia DO STUDY: CT ABDOMEN AND PELVIS WITH CONTRAST REASON FOR EXAM: Female, 26 years old. Right lower quadrant pain. Vaginal bleeding. RADIATION DOSAGE (If Supplied By Facility): CTDIvol = ( 10.41 ) mGy, DLP = ( 378.26 ) mGycm TECHNIQUE: Transaxial images were obtained from the dome of the diaphragm to the symphysis pubis without oral contrast. 100 ml of Isovue 300 contrast was administered. Sagittal and coronal images were reconstructed. Individualized dose optimization techniques were used for this CT. COMPARISON: None. FINDINGS: The visualized lung bases are unremarkable. The visualized portions of the heart are within normal limits. Normal liver. Normal gallbladder and extrahepatic biliary system. Normal spleen. Normal pancreas. Normal bilateral adrenal glands. Normal right kidney. Normal left kidney. There is a small hiatal hernia. Normal small intestine. Normal colon. The appendix is visualized and appears normal. Small amount of free fluid in the right paracolic gutter. Inflammatory changes in the right lower quadrant. Normal abdominal aorta. Normal inferior vena cava. Normal retroperitoneum. Normal urinary bladder. Moderately enlarged inhomogeneous uterus with inhomogeneous enhancement. There is a 2.6 cm x 1.7 cm cyst in the left ovary. Small amount of free fluid in the cul-de-sac. Normal abdominal wall. Normal osseous structures. CT/Abdomen/Pelvis W IV Cont ONLY IMPRESSION: Inhomogeneous enlarged uterus with left ovarian cyst. Small amount of free fluid in the cul-de-sac and right paracolic gutter. Correlation with pelvic ultrasound is recommended. The appendix is visualized and appears to be unremarkable. If the pelvic ultrasound is unremarkable, a repeat CT scan following oral contrast is recommended. Electronically Signed: Ulises Montanez MD at 12:31 EST Tel [phone], Service support , CC: No Primary Care Physician; Bryan Palencia DO Engine Pilot: Signed ALLERGIES ALLERGIES DATE TYPE / CODE NAME / CODE REACTION SEVERITY SOURCE 06/15/2017 Drug No Known Unknown [place] Allergy/239963197(S Allergies/F Community NOMED CT) [id number]([facility] XNORM) Repository 12/22/2005 Miscellaneous OTHER INTOLERANCE [place] Allergy/542906035(S Clinic Main NOMED CT) [place] Repository ENCOUNTERS ENCOUNTERS ADMIT/DISCHARGE ACCOUNT ADMITTING ENCOUNTER LOCATION SOURCE NUMBER CLASS 04/01/2018/04/01/20 [id number] Emergency [address] ing:ED Repository 03/30/2018/04/02/20 [id number] Ambulatory [address] Repository 11/03/2017/11/07/19 [id number] Ambulatory [address] Repository 09/08/2017/09/09/19 [id number] Emergency [address] ing:ED Repository 06/15/2017/06/16/19 [id number] Emergency [address] ing:ED Repository PAYERS PAYERS ENCOUNTER GUARANTOR PAYER SUBSCRIBER SOURCE 04/01/2018 SHARI M Primary SHARI [id number] Insurance:CARESOURCEP GOODENDOB: [facility] Number: [id number] [id number] Repository [address]Jya: ([phone]) Date:2018-04-01P O [phone] () [address]ATTN: [place] [address]SR: 04/01/2018 Secondary NOT GIVENUNK [place] Insurance:SELF PAY [facility] Number: Effective Repository Date:2018-04-01 09/08/2017 SHARI M Primary SHARIDAYAMI Spears [id number] Insurance:CARESOURCEP GOODENDOB: [facility] Number: [id number] [id number] Repository [address]Zgh: ([phone]) Date:2017-09-08P O [phone] () [address]ATTN: [place] [address]JB: 09/08/2017 Secondary NOT GIVENUNK [place] Insurance:SELF PAY [facility] Number: Effective Repository Date:2017-09-08 06/15/2017 Shari Sinha402 Primary Shari [place] S BEATA MARTINO, Insurance:CARESOURCEP GoodenDOB: [facility] [address]Rvv: 330 olicy Number: [id number] [phone] () [id number] Repository Date:2017-06-15P O [address]ATTN: [place] [address]OV: 06/15/2017 Secondary NOT GIVENUNK [place] Insurance:SELF PAY [facility] Number: Effective Repository Date:2017-06-15
== END 2018-04-01 11:20 | disposition home or self-care (01) ==
PROVIDERS: Emergency Provider Emergency Medicine
DX: J02.0 Streptococcal pharyngitis (principal); H10.029 Other mucopurulent conjunctivitis, unspecified eye; Z79.2 Long term (current) use of antibiotics; Z87.891 Personal history of nicotine dependence
CPT/HCPCS: 96361; 96374; 96375; 99283; J7030; A4216

== ENCOUNTER → 2020-01-23 | Outpatient (CLI) | payer MEDICAID, SELFPAY ==
[2020-01-23 10:40] VITALS: BMI 27.4
== END | disposition home or self-care (01) ==
LOC: MTDU 17:53
PROVIDERS: Referring Provider Physician Assistant; Visit Provider Physician Assistant
DX: J02.9 Acute pharyngitis, unspecified (principal); J34.89 Other specified disorders of nose and nasal sinuses; R05 Cough; R53.83 Other fatigue; M79.10 Myalgia, unspecified site; R51.9 Headache, unspecified; Z20.828 Contact with and (suspected) exposure to other viral communicable diseases
CPT/HCPCS: 87635; U0003

== ENCOUNTER 2020-10-30 08:35 | Emergency (ER) | payer MEDICAID, SELFPAY ==
[2020-01-23 10:40] VITALS: BMI 27.4
[2020-10-30 08:36] VITALS: BP 127/73; PULSE 78; RESP 17; TEMP 36.4; O2SAT 99; BMI 30.2
--- NOTE | 2020-10-30 08:45 | RAD_ITS ---
STUDY: X-RAY - RIGHT ANKLE REASON FOR EXAM: Female, 29 years old. Pain TECHNIQUE: 3 view(s) of the ankle. COMPARISON: None. FINDINGS: Normal visualized distal tibia and fibula. Normal medial and lateral malleoli. Normal tibiotalar articulation and ankle mortise. Normal visualized talus and calcaneus. The visualized subtalar, talonavicular, calcaneocuboid and tarsal articulations are normal. Diffuse soft tissue swelling. RAD/Ankle min 3 Views IMPRESSION: Soft tissue swelling. Electronically Signed: Ulises Montanez MD at 9:00 EDT , Service support ,
--- NOTE | 2020-10-30 08:53 | ED.VIS.LOWEX ---
HPI History of Present Illness Chief Complaint: Lower Extremity Injury Narrative Narrative: 29-year-old female presenting with right ankle pain. She states she twisted it when she was stepping up a step at home carrying groceries. She is ambulatory last night. She notes this morning if there is more swelling. She is still ambulatory today. She describes pain in the medial malleolus. No numbness or tingling. She took ibuprofen prior to arrival. [facility] Medical History Asthma Back pain Environmental allergies Limb weakness Severe headache Shoulder pain SOB (shortness of breath) Home Medications NK 06/15/17 [History Last Taken Unknown] Allergy/AdvReac Type Severity Reaction Status Date / Time No Known Allergies Allergy Verified 10/30/20 08:36 Family History Other Breast cancer Diabetes Social History Smoking Status: Never smoker alcohol intake: never ROS ROS ED Constitutional Constitutional ED: Denies chills or fever(s) Eyes Eyes: Denies blurry vision or diplopia ENT ENT ED: Denies rhinorrhea or sore throat Cardiovascular Cardiovascular: Denies chest pain or palpitations Respiratory/Chest Respiratory/Chest: Denies cough, dyspnea or sputum Gastrointestinal Gastrointestinal: Denies abdominal pain, nausea or vomiting Genitourinary Genitourinary ED: Denies dysuria or hematuria Musculoskeletal Musculoskeletal: Reports other Details: Left ankle pain Integumentary Denies Abrasions or rash Neurologic Neurologic: Denies headache(s) or paresthesias EXAM Physical Exam Const Vital Signs: 10/30/20 08:36 Temperature 97.6 F L Temperature Source Temporal Pulse Rate 78 Respiratory Rate 17 Blood Pressure 127/73 H Blood Pressure Mean 91 Pulse Ox 99 Oxygen Delivery Method Room Air Positive well nourished and unkempt General Appearance ED: unkempt HEENT normocephalic and atraumatic Eyes PERRL and EOMs intact bilaterally Resp normal respiratory effort, no retractions and no use of accessory muscles Cardio regular rate and regular rhythm Extremity Extremity Narrative: Tenderness palpation over the right medial malleoli. No deformities. No tenderness over the lateral malleoli on the right. Right foot neurovascular intact with cap refill to all 5 toes. Neuro oriented x3 Sensorium / Orientation: alert Psych mental status grossly normal Appearance: unkempt Skin Lesions: no lesions Rashes: no rashes MDM MDM MDM Narrative Medical decision making narrative: Patient presenting with right ankle pain. She is ambulatory on scene and in the ED. She has some mild medial malleoli or pain on the right. Right ankle x-ray on my interpretation shows no acute fracture or subluxation and the radiologist does agree. Patient will be placed in Usman wrap and Aircast. She declines crutches. Patient stable for discharge home. Impression: 1. Right ankle sprain Radiography Diagnostic Testing: Radiology Impression Ankle X-Ray 10/30/20 08:45 IMPRESSION: Soft tissue swelling. Electronically Signed: Ulises Montanez MD at 9:00 EDT , Service support , Discharge Plan Triage Chief Complaint: Lower Extremity Injury ED Provider: Alek Rosenbaum Dx/Rx/DC Orders Instructions: ED Ankle Sprain (Adult) Prescriptions: No Action NK RF: 0 Primary Care Provider: Care Physician,No Primary Referrals: Diana Curran DO [STAFF PHYSICIAN] - As Needed Care Physician,No Primary [Primary Care Provider] - Disposition Disposition: Home, Self Care
[2020-10-30 09:53] VITALS: BP 124/77; PULSE 62; RESP 16; O2SAT 98
== END 2020-10-30 09:53 | disposition home or self-care (01) ==
PROVIDERS: Emergency Provider Student in an Organized Health Care Education/Training Program
DX: S93.401A Sprain of unspecified ligament of right ankle, initial encounter (principal); J45.909 Unspecified asthma, uncomplicated; X50.1XXA Overexertion from prolonged static or awkward postures, initial encounter; Y93.01 Activity, walking, marching and hiking; Y92.008 Other place in unspecified non-institutional (private) residence as the place of occurrence of the external cause; Y99.8 Other external cause status
CPT/HCPCS: 73610; 99283

== ENCOUNTER → 2021-01-28 10:55 | Outpatient (CLI) | payer MEDICAID, SELFPAY ==
[2021-01-28 11:44] LABS: T4 Free Direct 1.17 ng/dL (0.76-1.46); Thyroid Stim Hormone (TSH) 2.12 uIU/mL (0.358-3.74)
== END ==
PROVIDERS: Visit Provider Obstetrics & Gynecology
DX: R63.5 Abnormal weight gain (principal)
CPT/HCPCS: 36415; 83036; 84439; 84443

== ENCOUNTER 2021-10-25 09:06 | Emergency (ER) | payer MEDICAID, SELFPAY ==
[2021-10-25 09:06] VITALS: BP 117/70; PULSE 64; RESP 14; TEMP 36.6; O2SAT 100; BMI 33.8
--- NOTE | 2021-10-25 09:23 | EX.ED.DYSGE1 ---
HPI History of Present Illness Chief Complaint: Edema Informant: patient Narrative Narrative: 30-year-old female presenting to the emergency room with breast tenderness. Patient states that for the past many months about 1 week prior to her menstrual cycle her breast began to swell. She notes that they are painful. She states that this month however the left breast is significantly more painful to her than the right. She notes pain up into her axilla. She denies any nipple drainage. No nipple inversion. She has not palpated her breast to see if there is any masses. She does note the breast cancer runs heavily in her family. No fevers. No redness. PFSH PFS Medical History Asthma Back pain Environmental allergies Limb weakness Severe headache Shoulder pain SOB (shortness of breath) Home Medications hydrocodone-acetaminophen 5-325mg 5mg-325mg 1 tab PO Q6H PRN PRN Pain 3 days #12 TABLETS 10/25/21 [Rx Last Taken Unknown] Allergy/AdvReac Type Severity Reaction Status Date / Time No Known Allergies Allergy Verified 10/25/21 09:08 Family History Other Breast cancer Diabetes Social History Smoking Status: Never smoker alcohol intake: never ROS ROS ED Constitutional Constitutional ED: Denies chills or weight loss Eyes Eyes: Denies change in vision or diplopia ENT ENT ED: Denies ear pain, rhinorrhea or sore throat Cardiovascular Cardiovascular: Denies chest pain, orthopnea, palpitations or racing heartbeat Respiratory/Chest Respiratory/Chest: Reports other Details: Breast swelling and tenderness ; Denies cough, dyspnea or orthopnea Gastrointestinal Gastrointestinal: Denies abdominal pain, diarrhea, nausea or vomiting Genitourinary Genitourinary ED: Denies dysuria, hematuria or urinary frequency Musculoskeletal Musculoskeletal: Denies arthralgias or myalgias Integumentary Denies abscess or rash Neurologic Neurologic: Denies headache(s) or weakness Psychiatric Psychiatric: Denies anxiety, depression, suicidal ideation or suicidal thoughts Endocrine Endocrinology: Denies polydipsia, polyphagia or polyuria Allergic/Immunologic Allergic/Immunologic ED: Denies mouth swelling, tongue swelling or urticaria EXAM Physical Exam Const Vital Signs: 10/25/21 09:06 10/25/21 09:11 Temperature 97.8 F Temperature Source Temporal Pulse Rate 64 Respiratory Rate 14 Respiratory Effort Normal Respiratory Pattern Normal Blood Pressure 117/70 Blood Pressure Mean 85 Pulse Ox 100 Oxygen Delivery Method Room Air Positive well nourished and well developed General Appearance ED: well developed HEENT Reports normocephalic, head/scalp atraumatic and moist mucous membranes Eyes PERRL and EOMs intact bilaterally Neck no lymphadenopathy, supple and no JVD Chest Wall Chest Narrative: There are several small cyst that are palpable. Patient has tenderness to palpation in the left upper quadrant of the breast into the axilla. There is no nipple drainage. There are no skin discolorations. I do not palpate any firm or immobile masses. Resp normal respiratory effort and clear to auscultation bilaterally Cardio regular rate, regular rhythm and no murmurs GI normal to inspection, nondistended, normoactive bowel sounds and non-tender Palpation: soft Back/Spine no CVA tenderness and normal ROM Extremity normal to inspection General Extremety ED: Negative for edema General Extremity: Negative for edema Neuro oriented x3 and CN's II-XII intact bilaterally Sensorium / Orientation: alert Motor Exam: strength 5/5 throughout Psych mental status grossly normal Mood & Affect: Negative for depressed or tearful Skin no rashes or lesions noted and no wounds MDM MDM MDM Narrative Medical decision making narrative: Patient has been treating with Tylenol which this month has been ineffective. Would recommend anti-inflammatories and I can write for a few [place]. The patient does not see [employer] regularly but given her familial history of breast cancer would benefit from yearly well woman exams. I will refer her to [employer]. Discharge Plan Triage Chief Complaint: Edema ED Provider: Rigoberto Schafer Dx/Rx/DC Orders Clinical Impression: Acute breast pain, Cyst of breast Instructions: What Are Benign Breast Conditions?, Understanding Breast Cysts Prescriptions: New hydrocodone-acetaminophen [hydrocodone-acetaminophen] 5-325 mg tablet 1 tab PO Q6H PRN PRN (Reason: Pain) 3 Days Qty: 12 0RF Primary Care Provider: Care Physician,No Primary Referrals: Sagrario Dhaliwal, [STAFF PHYSICIAN] - As soon as possible Care Physician,No Primary [Primary Care Provider] - Disposition Disposition: Home, Self Care
== END 2021-10-25 10:54 | disposition home or self-care (01) ==
PROVIDERS: Emergency Provider Emergency Medicine; Visit Provider Emergency Medicine
DX: N64.4 Mastodynia (principal); N60.09 Solitary cyst of unspecified breast; R60.9 Edema, unspecified; J45.909 Unspecified asthma, uncomplicated
CPT/HCPCS: 99282

== ENCOUNTER → 2021-11-05 | Outpatient (CLI) | payer MEDICAID, SELFPAY ==
--- NOTE | 2021-11-05 08:47 | BI_ITS ---
MAMMOGRAPHY - BILATERAL DIAGNOSTIC REASON FOR EXAM: Female, 30 years old. Pain in the upper-outer quadrant of the left breast. PERTINENT HISTORY: Grandmother with breast cancer. TECHNIQUE: Digital bilateral breast stormy (3D mammographic acquisition) in the CC and MLO projections. 2-D mediolateral oblique (MLO) and craniocaudad (CC) views of both breasts were obtained. CAD: Full Field Digital Mammography with Computer Added Detection was performed. COMPARISON: None. Baseline examination. FINDINGS: Breast Composition: The breasts are extremely dense, which lowers the sensitivity of mammography. There are no dominant masses or suspicious calcifications. Small bilateral axillary lymph nodes. No other significant abnormalities are identified. BI/DIAG MAMM W/CAD, BILAT IMPRESSION: Negative diagnostic mammogram. Correlation with ultrasound of the upper outer quadrant of the left breast is recommended for further evaluation. ASSESSMENT CATEGORY: BIRADS Category 0: Incomplete. Need additional imaging evaluation. A letter regarding these results will be sent to the patient by the facility within 30 days. Approximately 10% of breast cancers are not detected by mammography. A normal mammogram should not delay biopsy of a clinically suspicious abnormality. Electronically Signed: Ulises Montanez MD at 9:47 EDT ,
--- NOTE | 2021-11-05 08:59 | US_ITS ---
STUDY: ULTRASOUND BREAST - LEFT REASON FOR EXAM: Female, 30 years old. Left upper breast pain. TECHNIQUE: Axial and longitudinal images of the LEFT breast were performed with a high resolution ultrasound transducer. # OF IMAGES: 63 COMPARISON: Comparison is made with prior mammogram done earlier in day. FINDINGS: LEFT Breast: The upper half of the left breast was examined with ultrasound. There is a 9 mm x 7 mm x 5 mm well-defined hypoechoic nodule with central fatty hilum in the mid left axilla. This represents a small benign lymph node. No other sonographic abnormality is seen. US/Breast Limited Unilateral IMPRESSION: Small benign-appearing lymph node in the left axilla. No other sonographic abnormality is seen. ASSESSMENT CATEGORY: BIRADS Category 2: Benign. A letter regarding these results will be sent to the patient by the facility within 30 days. Electronically Signed: Ulises Montanez MD at 10:21 EDT ,
== END | disposition home or self-care (01) ==
LOC: OPBI 08:45
PROVIDERS: Referring Provider Obstetrics & Gynecology; Visit Provider Obstetrics & Gynecology
DX: N64.4 Mastodynia (principal)
CPT/HCPCS: 77062; 76642; 77066; G0279

== ENCOUNTER → 2022-02-16 | Outpatient (CLI) | payer MEDICAID, SELFPAY ==
--- NOTE | 2022-02-16 11:52 | US_ITS ---
STUDY: FIRST TRIMESTER OBSTETRICAL ULTRASOUND REASON FOR EXAM: Female, 31 years old Confirm Viability LMP: 01/17/2022 TECHNIQUE: Transvaginal TECHNICAL QUALITY: Adequate. PRIOR ULTRASOUND: None. FINDINGS: There is visualization of a single gestational sac in a normal intrauterine position. The mean sac diameter (MSD) measures 3 mm, indicating an estimated gestational age (EGA) of 5 weeks, 0 days. The gestational sac shape is within normal limits. There is no demonstrated yolk sac. The placenta is non-visualized. There is no demonstrated embryo ( pole). The estimated gestation age (EGA) by LMP is 4 weeks, 2 days. The estimated date of delivery (VAL) by LMP is 10/24/2022. The estimated gestation age (EGA) by US is 5 weeks, 0 days. The estimated date of delivery (VAL) by US is 10/19/2022. The uterus measures 10.7 cm x 6.2 cm x 5.9 cm. Heterogeneous echotexture of the fundal portion of the uterus suggestive of fibroid change although no focal fibroid is seen. The cervix is closed. The right ovary measures 3 cm x 1.7 cm x 1.8 cm. There is no right ovarian cyst. There is no visualized right adnexal mass or complex lesion. The left ovary measures 3.5 cm x 3 cm x 2.5 cm. There is a 1.9 cm x 2.17 x 2.2 cm cyst in the left ovary. There is no visualized left adnexal mass or complex lesion. There is minimal fluid in the cul de sac. US/Transvaginal w/Preg US IMPRESSION: Findings suggestive of a tiny intrauterine gestational sac with no evidence of yolk sac or embryonic pole. Correlation with beta hCG is recommended. 1.9 cm x 2.1 synovitis to 0.2 cm cyst in the left ovary. Electronically Signed: Ulises Montanez MD at 15:17 EDT ,
== END | disposition home or self-care (01) ==
PROVIDERS: Referring Provider Nurse Practitioner Women's Health; Visit Provider Nurse Practitioner Women's Health
DX: R30.0 Dysuria (principal); O36.80X0 Pregnancy with inconclusive fetal viability, not applicable or unspecified
CPT/HCPCS: 76817; 87086

== ENCOUNTER → 2022-02-17 | Outpatient (CLI) | payer MEDICAID, SELFPAY ==
[2022-02-17 09:09] LABS: hCG Titer Quant., Serum 1132 mIU/mL (1-3)
== END | disposition home or self-care (01) ==
PROVIDERS: Referring Provider Obstetrics & Gynecology; Visit Provider Obstetrics & Gynecology
DX: N91.2 Amenorrhea, unspecified (principal)
CPT/HCPCS: 36415; 84702

== ENCOUNTER → 2022-02-19 | Outpatient (CLI) | payer MEDICAID, SELFPAY ==
[2022-02-19 08:50] LABS: hCG Titer Quant., Serum 2592 mIU/mL (1-3)
== END | disposition home or self-care (01) ==
PROVIDERS: Referring Provider Obstetrics & Gynecology; Visit Provider Obstetrics & Gynecology
DX: N91.2 Amenorrhea, unspecified (principal)
CPT/HCPCS: 36415; 84702

== ENCOUNTER 2022-03-21 13:28 | Outpatient (CLI) | payer MEDICAID, SELFPAY ==
[2022-03-21 13:41] VITALS: BMI 33.8
[2022-03-21 14:14] VITALS: TEMP 36.4
[2022-03-21 14:15] VITALS: BP 111/68; PULSE 67
[2022-03-21] MEDS: Lactated Ringers 1,000 ML 999 ML IV (14:15)
[2022-03-21] MEDS: Ondansetron 4 MG/2 ML Vial 8 MG IV (14:16)
[2022-03-21 14:18] LABS: Absolute Lymphocyte Count 1.69 X10^3/uL (0.83-4.51); Absolute Neutrophil Count 3.8 X10^3/uL (2.0-7.7); Basophil# 0.01 X10^3/uL; Basophil% 0.2 % (0-1); Hematocrit 35.1 % (37-47); Hemoglobin 11.7 g/dL (12.0-15.0); Lymphocyte # 1.69 X10^3/ul (0.83-4.51); Lymphocyte % 28.2 % (19-41); Mean Corp Hgb Conc 33.3 g/dL (32-36); Mean Corpuscular Hgb 27.6 pg (27.0-32.0); Mean Corpuscular Volume 82.8 fL (81-99); Mean Platelet Vol. 9.6 fl (6.2-12.0); Monocyte% 8.3 % (0-10); NRBC Flagged by Analyzer 0 % (0-5); Neutrophil # 3.77 X10^3/uL (2.7-7.7); Platelet Count 230 K/mm3 (150-450); RBC Distribution Width CV 12.8 % (11.6-14.6); RBC Distribution Width SD 38.4 fl (35.1-43.9); Red Blood Count 4.24 M/mm3 (4.2-5.4)
[2022-03-21 14:52] LABS: ALB/GLOB Ratio 0.9 RATIO (0.9-2.4); AST(SGOT) 13 U/L (15-37); Alanine Aminotransfer ALT/SGPT 25 U/L (13-56); Albumin, Serum 3.7 g/dL (3.2-5.0); Alkaline Phosphatase 52 U/L (45-117); Anion Gap 3 (5-15); BUN 12 mg/dL (7-18); BUN/Creat Ratio 19.3 RATIO (10-20); Calcium,Total 9.1 mg/dL (8.5-10.1); Chloride 106 mmol/L (98-107); Creatinine, Serum 0.62 mg/dL (0.55-1.02); EST Glomerular Filtration Rate 120 mL/min (>60); Est Glom Filt Rate - Afr Amer 146 mL/min (>60); Estimated Creatinine Clearance 105.89 ml/min; Globulin 4.2 g/dL (2.2-4.2); Glucose 87 mg/dL (74-106); Potassium 3.6 mmol/L (3.5-5.1); Protein, Total 7.9 g/dL (6.4-8.2); Sodium Level 135 mmol/L (136-145); Thyroid Stim Hormone (TSH) 2.05 uIU/mL (0.358-3.74)
[2022-03-21] MEDS: Dext 5%-0.45% NS 1,000 ML 200 ML IV (15:17)
[2022-03-21] MEDS: proCHLORPERazine 10 MG/2 ML Vial IV (16:41)
[2022-03-21 19:14] VITALS: BP 131/60; PULSE 76; TEMP 36.9; O2SAT 99
--- NOTE | 2022-03-23 12:09 | OB.TRI.NOTE ---
HPI - General General Date of Admission: 03/21/22 Date of Service: 03/21/22 HPI Narrative CHAVA SINHA, is a 31 F who presents with persistent nausea and vomiting of and dehydration. Call the office today and had not been able to keep anything down in 14 hours. Was sent to labor and delivery for evaluation and IV fluids [facility] Medical History Asthma Back pain Environmental allergies Limb weakness Severe headache Shoulder pain SOB (shortness of breath) Home Medications [id number]-[id number]-FA 1 mg tablet 1 tab PO DAILY 03/21/22 [History Last Taken 03/20/22 08:00] Allergy/AdvReac Type Severity Reaction Status Date / Time No Known Allergies Allergy Verified 03/21/22 19:18 Family History Other Breast cancer Diabetes Social History Smoking Status: Never smoker alcohol intake: never Assessment & Plan (1) 10 weeks gestation of : PLAN: Labs appropriate for . After IV hydration antiemetics patient was feeling better. She is to follow-up in our office this week to discuss medication regimen and weight gain. (2) Hyperemesis affecting , antepartum:
== END 2022-03-21 20:20 | disposition home or self-care (01) ==
LOC: WPOUT 13:31 → WP 13:32
PROVIDERS: Referring Provider Obstetrics & Gynecology; Visit Provider Obstetrics & Gynecology
DX: O99.891 Other specified diseases and conditions complicating pregnancy (principal); R11.2 Nausea with vomiting, unspecified; Z3A.10 10 weeks gestation of pregnancy
CPT/HCPCS: 96374; 96375; 96361 ×6; 80053; 84443; 85025; J7120; J2405; J7799

== ENCOUNTER 2022-07-26 23:20 | Outpatient (CLI) | payer MEDICAID, SELFPAY ==
[2022-07-26 23:37] VITALS: PULSE 82; O2SAT 99
[2022-07-26 23:40] VITALS: BMI 38.5
[2022-07-26 23:41] VITALS: TEMP 36.6
[2022-07-26 23:42] VITALS: BP 105/59; PULSE 78
--- NOTE | 2022-08-19 19:49 | OB.TRI.HP_ITS ---
HPI - General HPI Narrative CHAVA SINHA, is a 31 F who presents [facility] Medical History Asthma Back pain Environmental allergies Limb weakness Severe headache Shoulder pain SOB (shortness of breath) Home Medications [id number] 1 mg tablet 1 tab PO DAILY 03/21/22 [History Last Taken 03/20/22 08:00] Allergy/AdvReac Type Severity Reaction Status Date / Time No Known Allergies Allergy Verified 07/26/22 23:38 Family History Other Breast cancer Diabetes Social History Smoking Status: Never smoker alcohol intake: never Assessment & Plan (1) Decreased movement: COMMENT: 28&1 PLAN: Plan NST for decreased FM.
== END 2022-07-27 00:41 | disposition home or self-care (01) ==
LOC: WPOUT 23:32 → WP 23:33
PROVIDERS: Visit Provider Obstetrics & Gynecology
DX: O36.8130 Decreased fetal movements, third trimester, not applicable or unspecified (principal); Z3A.28 28 weeks gestation of pregnancy
CPT/HCPCS: 59025; 59050; 99221; G0378

== ENCOUNTER 2022-10-10 00:32 | Outpatient (CLI) | payer MEDICAID, SELFPAY ==
[2022-10-10 00:47] VITALS: PULSE 84; O2SAT 99
[2022-10-10 00:52] VITALS: PULSE 83; O2SAT 98
[2022-10-10 00:57] VITALS: PULSE 87; TEMP 37.2; O2SAT 99
[2022-10-10 01:00] VITALS: BP 131/63; PULSE 84
[2022-10-10 01:08] VITALS: BMI 40.2
--- NOTE | 2022-10-10 04:08 | OB.TRI.HP_ITS ---
HPI - General General Date of Service: 10/10/22 HPI Narrative CHAVA SINHA, is a 31 F who presents with ctxs. Maternal Data Information Final VAL: 10/17/22 Gestational age: 39 weeks [facility] Medical History Asthma Back pain Environmental allergies Limb weakness Severe headache Shoulder pain SOB (shortness of breath) Home Medications [id number]-[id number] 1 mg tablet 1 tab PO DAILY 03/21/22 [History Last Taken 10/09/22 08:00] famotidine 20 mg tablet 20 mg PO DAILY 10/10/22 [History Last Taken 10/09/22 10:00] Allergy/AdvReac Type Severity Reaction Status Date / Time No Known Allergies Allergy Verified 10/10/22 01:11 Family History Other Breast cancer Diabetes Social History Smoking Status: Never smoker alcohol intake: never NST FHR Rate Baby A Baseline: 135 Variability:: Moderate Accelerations:: 15 x 15 Decelerations:: None NST Reactive:: Yes Uterine Activity:: Irregular Assessment & Plan (1) False labor: PLAN: Reactive NST for false labor
[2022-10-12 02:57] VITALS: BP 124/74; PULSE 86
[2022-10-12 02:58] VITALS: TEMP 36
== END 2022-10-10 04:20 | disposition home or self-care (01) ==
LOC: WPOUT 00:38 → WP 00:39
PROVIDERS: Referring Provider Obstetrics & Gynecology; Visit Provider Obstetrics & Gynecology
DX: O47.1 False labor at or after 37 completed weeks of gestation (principal); O99.513 Diseases of the respiratory system complicating pregnancy, third trimester; J45.909 Unspecified asthma, uncomplicated; Z3A.39 39 weeks gestation of pregnancy
CPT/HCPCS: 59025; 59050; 76815; 99221; G0378

== ENCOUNTER 2022-10-12 02:40 | Inpatient (IN) | payer MEDICAID, SELFPAY ==
[2022-10-12] VITALS (111 sets, daily range): BP systolic 87–135; BP diastolic 50–77; PULSE 65–120; RESP 18; TEMP 35.9–36.8; O2SAT 57–100; BMI 40.1
[2022-10-12] MEDS: 0.9% Saline Lock 10 ML Syringe IV (03:45)
--- NOTE | 2022-10-12 08:00 | PCM.HP.OB ---
HPI - General General Date of Admission: 10/12/22 HPI Narrative CHAVA GUILLEN, is a 31 F at 39.2 weeks who presents with spontaneous rupture of membranes. Patient was scheduled for an elective induction of labor and Dilapan was placed in office yesterday morning. Patient arrived to unit earlier this morning with S.R.O.M. Maternal Data Information VAL Calculator Estimated Delivery Date Method Current WG Current Estimate 09/17/22 Manual 43w 4d PFSH PFSH Medical History (Updated 10/12/22 @ 08:06 by Hafsa Watters CNM) Asthma Back pain Environmental allergies Limb weakness Severe headache Shoulder pain SOB (shortness of breath) Home Medications [id number]-[id number] 1 mg tablet 1 tab PO DAILY 03/21/22 [History Last Taken 10/09/22 08:00] famotidine 20 mg tablet 20 mg PO DAILY 10/10/22 [History Last Taken 10/09/22 10:00] Allergy/AdvReac Type Severity Reaction Status Date / Time No Known Allergies Allergy Verified 10/10/22 01:11 Family History Other Breast cancer Diabetes Social History Smoking Status: Never smoker alcohol intake: never ROS Eyes Eyes: Denies blurry vision, change in vision or spots in vision ENT HEENT: Denies dizziness or headache(s) Cardiovascular Cardiovascular: Denies abdominal pain, chest pain or dyspnea Respiratory/Chest Respiratory/Chest: Denies cough, dyspnea, shortness of breath at rest or shortness of breath with exertion Gastrointestinal Gastrointestinal: Denies abdominal pain, diarrhea or vomiting Genitourinary Genitourinary: Denies change in urinary stream, difficulty urinating or dysuria Musculoskeletal Musculoskeletal: Reports none Integumentary Integumentary: Denies rash Neurologic Neurologic: Denies dizziness, headache(s), memory loss or weakness Psychiatric Psychiatric: Reports none Vital Signs Vital Signs Vital Signs: 10/12/22 06:11 10/12/22 06:10 10/12/22 06:11 Temperature 96.6 F L Temperature Source Temporal Pulse Rate Blood Pressure 125/69 H BP Systolic 125 BP Diastolic 69 10/12/22 06:11 10/12/22 07:16 10/12/22 07:16 Temperature Temperature Source Pulse Rate 85 78 Blood Pressure 118/66 BP Systolic 118 BP Diastolic 66 10/12/22 07:16 Temperature 97.0 F L Temperature Source Pulse Rate Blood Pressure BP Systolic BP Diastolic Physical Exam Const alert, oriented x3 and no apparent distress General Appearance: cooperative Orientation / Consciousness: awake Exam Limitations: no limitations HEENT normocephalic Head and Scalp: normal to inspection Eyes General Eye: normal appearance of both eyes Neck full ROM and no lymphadenopathy Lymph Lymphatic: no lymphadenopathy noted Chest inspection of chest normal Resp normal respiratory effort, normal air movement and clear to auscultation bilaterally Effort and Inspection: able to speak in complete sentences and symmetric chest movement Cardio regular rate and regular rhythm GI normal to inspection, nondistended, normoactive bowel sounds Manual OB Exam: presentation cephalic Back/Spine normal ROM Extremity full ROM and no calf tenderness Skin no rashes or lesions noted General Skin Exam: no breakdown Neuro oriented x3 and CN's II-XII intact bilaterally Psych mental status grossly normal and thought process normal Labs Labs Labs: Blood Type O POSITIVE Hct 35.1 % (37-47) L Hgb 11.7 g/dL (12.0-15.0) L Obstetrics US Rubella IgG Antibody 83.5 IU/mL Hep Bs Antigen Negative (Negative) Miscellaneous Test GBS neg Assessment & Plan (1) 39 weeks gestation of : (2) Spontaneous rupture of amniotic membranes: (3) Asthma: (4) History of depression: (5) History of anxiety: PLAN: Plan Admit to labor and delivery Removal of Dilapan- 5 rods intact 4.5/70/-2 Desires epidural anesthesia Start Pitocin IV at 2 mu/min and increase per policy Anticipate Dr. Butcher notified of admission and is collaborating physician
[2022-10-12] MEDS: LACTATED RINGERS 500 ML 999 ML IV ×4 (08:20→14:13)
[2022-10-12 08:36] LABS: Hematocrit 29.2 % (37-47); Hemoglobin 9.4 g/dL (12.0-15.0); Mean Corp Hgb Conc 32.2 g/dL (32-36); Mean Corpuscular Hgb 25.9 pg (27.0-32.0); Mean Corpuscular Volume 80.4 fL (81-99); Platelet Count 183 K/mm3 (150-450); RBC Distribution Width CV 13.5 % (11.6-14.6); RBC Distribution Width SD 39.3 fl (35.1-43.9); Red Blood Count 3.63 M/mm3 (4.2-5.4); White Blood Count 6.3 K/mm3 (4.4-11.0)
[2022-10-12 08:38] LABS: ROM Internal Control Test YES-OK TO RESULT pt. (Internal QC)
[2022-10-12 08:39] LABS: ROM Patient Test POSITIVE (Negative); Record Kit Lot#, ROM+ K1374
[2022-10-12] MEDS: Lactated Ringers 1,000 ML 200 ML IV ×2 (08:51→14:44)
[2022-10-12] MEDS: fentaNYL-bupivacaine (epidural) 100 ML BAG EPIDURAL ×2 (09:10→13:52)
[2022-10-12] MEDS: Ondansetron 4 MG/2 ML Vial IV ×2 (09:58→13:50)
--- NOTE | 2022-10-12 10:02 | NURSING ---
0345-saline lock placed by jeri pedro
[2022-10-12] MEDS: Oxytocin 15 Units/NS 250ml 15 UNITS/250 ML IV.SOLN 2 UNITS IV (10:09)
--- NOTE | 2022-10-12 17:03 | EX.PCM.OBRPT ---
Assessment & Plan (1) (spontaneous vaginal delivery): (2) Care and examination of lactating mother: (3) History of anxiety: (4) History of depression: Maternal Data Information VAL Calculator Estimated Delivery Date Method Current WG Current Estimate 10/17/22 Manual 39w 2d Gestational age: 39.2 [place] Doctor Who Attended Delivery: Amy Ruby Vaginal Delivery Maternal Presentation Maternal Presentation: Spontaneous Rupture of Membranes Maternal Presentation: Patient was a at 39.2 weeks gestation that presented with spontaneous rupture of membranes. Patient was scheduled for elective induction of labor this morning and Dilapan rods were placed in office yesterday. Operative Information Date of Procedure: 10/12/22 Pre-Operative Diagnosis: Term gestation, Spontaneous rupture of membranes Post-Operative Diagnosis: , Live male infant Surgery / Procedure Performed: Spontaneous Vaginal Delivery Type of Anesthesia: Epidural Drain: Pimentel to straight drain Estimated Blood Loss: 350 Time of Delivery: 16:42 Findings Description of Procedure: Provided bedside support to patient during while pushing. Senior Applications Architect called to room for meconium fluid noted while pushing. Patient pushing on left side. With maternal effort, head delivered in LOP position. Loose nuchal cord that was reduced easily while anterior shoulder and remainder of body delivered without applying any traction. Vigorous male placed on maternal abdomen and was attended to by nursing staff. Pitocin IV started for active management of the third stage of labor. 3 vessel cord clamped and cut by FOB after delay and placed immediately skin to skin with patient. Placenta delivered spontaneously and intact. Cord blood collected and sent. Fundus firm 2 below U. Vaginal sweep completed by me. Perineum intact. A small vaginal laceration noted that was not actively bleeding. No stitches placed. Hemostasis obtained. EBL 350 cc. APGARS 8/9. Patient and bonding well at this time. Dr. Butcher notified of delivery. Presentation: LOP Amniotic Membrane Rupture Type: Spontaneous Time of Membrane Rupture: 0030 Amniotic Fluid Description: Clear and Moderate meconium (at delivery) Placental Delivery Description: Spontaneous Placenta Disposition: [facility] Cord Vessel Description: 3 Vessels Cord Entanglement: Around neck x 1, loose Nuchal Cord Compression: Without compression Infant A Gender: Male Delayed Cord Clamping: Yes Post Vaginal Delivery Medications Given After Delivery: IV Pitocin Episiotomy Description: None Laceration: None Complication Complications: None
[2022-10-12] MEDS: Oxytocin 15 Units/NS 250ml 15 UNITS/250 ML IV.SOLN 83 UNITS IV (17:15)
[2022-10-12] MEDS: Methylergonovine 0.2 MG/ML Ampul IM (17:34)
--- NOTE | 2022-10-12 17:58 | PCM.PN.BLA ---
Progress Note Called to see patient. Retained POC in lower uterine segment visible on US. EBL [id number]. I examined patient and was able to explore uterus x1 w/ removal of small segment of placenta. No cervical or vaginal lacerations. Fundus then firm and no active bleeding. Brief US done, endometrial stripe noted. Check CBC in am. If further heavy bleeding I will be notfied.
[2022-10-12] MEDS: Naproxen 500 MG Tablet PO (19:23)
[2022-10-12] MEDS: Benzocaine/Lanolin/Aloe Vera 1 SPRAY EACH TOPICAL (20:38)
[2022-10-13] VITALS (12 sets, daily range): BP systolic 109–125; BP diastolic 59–75; PULSE 74–91; RESP 14–20; TEMP 36.4–36.9; O2SAT 96–100
[2022-10-13] MEDS: Acetaminophen 500 MG Tablet 1000 MG PO ×2 (01:03→08:51)
[2022-10-13] MEDS: Naproxen 500 MG Tablet PO ×2 (05:01→12:49)
[2022-10-13] MEDS: Senna/Docusate Sodium 1 Tablet PO (05:01)
[2022-10-13 05:27] LABS: Hematocrit 24.8 % (37-47); Hemoglobin 7.9 g/dL (12.0-15.0); Mean Corp Hgb Conc 31.9 g/dL (32-36); Mean Corpuscular Hgb 26.1 pg (27.0-32.0); Mean Corpuscular Volume 81.8 fL (81-99); Mean Platelet Vol. 9.5 fl (6.2-12.0); Platelet Count 181 K/mm3 (150-450); RBC Distribution Width CV 13.7 % (11.6-14.6); RBC Distribution Width SD 40.8 fl (35.1-43.9); Red Blood Count 3.03 M/mm3 (4.2-5.4); White Blood Count 11.2 K/mm3 (4.4-11.0)
--- NOTE | 2022-10-13 07:09 | PCM.PN.OB ---
Subjective Subjective Patient seen at bedside. Ambulating and voiding without difficulty. Denies headache, dizziness, CP, or SOB. Pumping and feeding baby via spoon/syringe due to difficult latch. Working with . Lochia decreasing. Desires possible discharge home later today. Objective Data Objective Data Vital Signs: Vital Signs Temp Pulse Resp BP Pulse Ox O2 Del Method 98.5 F 80 20 H 109/59 L 100 Room Air 10/13/22 04:58 10/13/22 04:58 10/13/22 04:58 10/13/22 04:58 10/13/22 04:58 10/13/22 04:58 Oxygen Delivery Method Room Air Weight: 219 lb 9.286 oz Body Mass Index (BMI) 40.1 Intake & Output: Intake and Output for Last 24 Hours 10/11/22 10/12/22 10/13/22 23:59 23:59 23:59 Intake Total 5070.00 / 5070.00 Output Total 2633 / 2633 200 / 200 Balance 2437.00 / 2437.00 -200 / -200 Lab / Micro Data 10/13/22 05:12 Labs: Laboratory Results - last 24 hr 10/12/22 02:40: Vag Amniotic Fld Detect POSITIVE H 10/12/22 03:45: WBC 6.3, RBC 3.63 L, Hgb 9.4 L, Hct 29.2 L, MCV 80.4 L, MCH 25.9 L, MCHC 32.2, RDW Std Deviation 39.3, RDW Coeff of Steven 13.5, Plt Count 183, MPV 9.0 10/13/22 05:12: WBC 11.2 H, RBC 3.03 L, Hgb 7.9 L, Hct 24.8 L, MCV 81.8, MCH 26.1 L, MCHC 31.9 L, RDW Std Deviation 40.8, RDW Coeff of Steven 13.7, Plt Count 181, MPV 9.5, Blood Type O POSITIVE, Antibody Screen NEGATIVE, Crossmatch See Detail ROS Eyes Eyes: Denies blurry vision, change in vision or spots in vision ENT HEENT: Denies dizziness or headache(s) Cardiovascular Cardiovascular: Denies abdominal pain, chest pain or dyspnea Respiratory/Chest Respiratory/Chest: Denies cough, dyspnea, shortness of breath at rest or shortness of breath with exertion Gastrointestinal Gastrointestinal: Denies abdominal pain, diarrhea or vomiting Genitourinary Genitourinary: Denies change in urinary stream, difficulty urinating or dysuria Musculoskeletal Musculoskeletal: Reports none Integumentary Integumentary: Denies rash Neurologic Neurologic: Denies dizziness, headache(s), memory loss or weakness Physical Exam Const alert and no apparent distress General Appearance: cooperative and comfortable Exam Limitations: no limitations HEENT normocephalic Eyes General Eye: normal appearance of both eyes Neck full ROM General: normal visual inspection Chest Chest: symmetrical chest wall rise Resp normal respiratory effort and normal air movement Effort and Inspection: symmetric chest movement Auscultation: clear to auscultation bilaterally Cardio regular rate and regular rhythm GI normal to inspection, nondistended, normoactive bowel sounds Back/Spine normal ROM Extremity full ROM and no calf tenderness General Extremity: normal exam except as noted Skin no rashes or lesions noted Neuro CN's II-XII intact bilaterally Psych mental status grossly normal Assessment & Plan (1) Care and examination of lactating mother: (2) (spontaneous vaginal delivery): (3) Anemia due to blood loss: (4) History of anxiety: (5) History of depression: PLAN: Plan PPD 1 Routine care Pain control IV FE x 1 dose now and repeat CBC later today Possible discharge home this evening
--- NOTE | 2022-10-13 07:30 | NURSING ---
report given to Rodney Crowe RN and Susan Butt RN who are assuming care of pt at this time
[2022-10-13 08:31] LABS: Syphilis Antibodies Non-reactive
[2022-10-13] MEDS: Ferrous Sulfate 325 MG Tablet PO ×2 (12:49→16:29)
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
[2022-10-13 16:55] LABS: Hematocrit 23.9 % (37-47); Hemoglobin 7.6 g/dL (12.0-15.0); Mean Corp Hgb Conc 31.8 g/dL (32-36); Mean Corpuscular Hgb 25.9 pg (27.0-32.0); Mean Corpuscular Volume 81.3 fL (81-99); Mean Platelet Vol. 9.5 fl (6.2-12.0); Platelet Count 191 K/mm3 (150-450); RBC Distribution Width CV 14.1 % (11.6-14.6); RBC Distribution Width SD 40.7 fl (35.1-43.9); Red Blood Count 2.94 M/mm3 (4.2-5.4); White Blood Count 11.2 K/mm3 (4.4-11.0)
--- NOTE | 2022-10-17 15:35 | NURSING ---
Mother doing well on follow up phone call. She is pumping and getting 2 oz off of each side and bottle feeding pumped milk. Having baby tongue tie clipped next week and then will see . She really liked Gayla and Ashely and Tab her labor nurse
== END 2022-10-13 18:20 | disposition home or self-care (01) | DRG 560 ==
PROVIDERS: Obstetrics & Gynecology; Admitting Provider Advanced Practice Midwife; Referring Provider Advanced Practice Midwife; Visit Provider Advanced Practice Midwife
DX: O69.81X0 Labor and delivery complicated by cord around neck, without compression, not applicable or unspecified (principal); Z37.0 Single live birth; O47.1 False labor at or after 37 completed weeks of gestation; D50.0 Iron deficiency anemia secondary to blood loss (chronic); J45.909 Unspecified asthma, uncomplicated; O72.2 Delayed and secondary postpartum hemorrhage; O99.02 Anemia complicating childbirth; O99.52 Diseases of the respiratory system complicating childbirth; O77.0 Labor and delivery complicated by meconium in amniotic fluid; O99.513 Diseases of the respiratory system complicating pregnancy, third trimester; Z3A.39 39 weeks gestation of pregnancy
CPT/HCPCS: 59025; 59050; 76815; 84112; 85027; 86780; 86850; 86900; 86901; 86920; 99221; J1756; J7120; A4216; G0378; J2405; J3490

== ENCOUNTER 2022-10-18 11:10 | Outpatient (CLI) | payer MEDICAID, SELFPAY ==
[2022-10-18] VITALS (12 sets, daily range): BP systolic 118–145; BP diastolic 64–93; PULSE 48–66; BMI 38.0
--- NOTE | 2022-10-18 11:52 | NURSING ---
1130 pt presents to for r/o pre e post vaginal delivery on 10/12 ; pt c/o headache rating a 8/10 since yesterday around 1300- pt states that it is not relieved with Tylenol or Motrin- pt states that she started seeing some spots in her vision this morning- pt also c/o some nausea; pt denies any epigastric pain; pts reflexes +2, no clonus present, pedal edema +1 in lower extremities, lungs clear, heart rate 58 regular, temp 97.3, pulse ox 99%, resp. 16, BP 128/75. 1145 phone call placed to [facility] made aware of pts above complaints, assessment, and vital signs; orders received
[2022-10-18] MEDS: Lactated Ringers 1,000 ML 999 ML IV (12:15)
[2022-10-18 12:29] LABS: Absolute Lymphocyte Count 0.96 X10^3/uL (0.83-4.51); Absolute Neutrophil Count 3.1 X10^3/uL (2.0-7.7); Basophil# 0.02 X10^3/uL; Basophil% 0.4 % (0-1); Hematocrit 24.1 % (37-47); Hemoglobin 7.8 g/dL (12.0-15.0); Lymphocyte # 0.96 X10^3/ul (0.83-4.51); Lymphocyte % 21.4 % (19-41); Mean Corp Hgb Conc 32.4 g/dL (32-36); Mean Corpuscular Hgb 26.6 pg (27.0-32.0); Mean Corpuscular Volume 82.3 fL (81-99); Mean Platelet Vol. 8.8 fl (6.2-12.0); Monocyte# 0.41 X10^3/uL; Monocyte% 9.1 % (0-10); NRBC Flagged by Analyzer 0 % (0-5); Neutrophil # 3.05 X10^3/uL (2.7-7.7); Platelet Count 253 K/mm3 (150-450); RBC Distribution Width CV 14.8 % (11.6-14.6); RBC Distribution Width SD 42.7 fl (35.1-43.9); Red Blood Count 2.93 M/mm3 (4.2-5.4); White Blood Count 4.5 K/mm3 (4.4-11.0)
[2022-10-18] MEDS: Metoclopramide 10 MG/2 ML Vial IV (12:32)
[2022-10-18] MEDS: DiphenhydrAMINE 50 MG/ML Syringe 25 MG IV (12:32)
[2022-10-18] MEDS: cycloBENZAPRine HCl 10 MG Tablet PO (12:47)
[2022-10-18 13:06] LABS: ALB/GLOB Ratio 0.6 RATIO (0.9-2.4); AST(SGOT) 26 U/L (15-37); Alanine Aminotransfer ALT/SGPT 60 U/L (13-56); Albumin, Serum 2.7 g/dL (3.2-5.0); Alkaline Phosphatase 98 U/L (45-117); Anion Gap 5 (5-15); BUN 9 mg/dL (7-18); Calcium,Total 8.8 mg/dL (8.5-10.1); Chloride 111 mmol/L (98-107); Creatinine, Serum 0.75 mg/dL (0.55-1.02); EST Glomerular Filtration Rate 97 mL/min (>60); Est Glom Filt Rate - Afr Amer 117 mL/min (>60); Estimated Creatinine Clearance 87.54 ml/min; Globulin 4.2 g/dL (2.2-4.2); Glucose 71 mg/dL (74-106); Protein, Total 6.9 g/dL (6.4-8.2); Sodium Level 140 mmol/L (136-145); Uric Acid 6.7 mg/dL (2.6-6.0)
--- NOTE | 2022-10-18 13:42 | NURSING ---
7612 phone call placed to [facility] made aware that pts headache has resolved, made aware of all abnormal lab results, made aware of BP range. plan of care is to give pt a iron infusion then dc to home. pt to follow up in the office tomorrow for a BP check and pt to call if severe headache or visual changes return
--- NOTE | 2022-10-24 11:42 | OB.TRI.NOTE ---
HPI - General HPI Narrative CHAVA GUILLEN, is a 31 F who presents 6 days PP post vaginal delivery. Headache for last day, rating 8/10 with visual disturbances. No history of migraines. Tried Tylenol, ibuprofen, hydration. No improvement. Denies abdominal pain, chest pain, or shortness of breath. . Maternal Data Information VAL Calculator Estimated Delivery Date Method Current WG Current Estimate 10/17/22 Manual 41w 0d PFSH PFSH Medical History (Updated 10/24/22 @ 11:43 by Alyssia Rao CNM) Asthma Back pain Environmental allergies Limb weakness Severe headache Shoulder pain SOB (shortness of breath) Home Medications [id number] 1 mg tablet 1 tab PO DAILY 03/21/22 [History Last Taken 10/11/22] famotidine 20 mg tablet 20 mg PO DAILY heartburn 10/10/22 [History Last Taken 10/09/22 10:00] acetaminophen 325 mg tablet (Tylenol) 650 mg PO Q6H 10/18/22 [History Last Taken 10/18/22 05:00] ibuprofen 600 mg tablet (IBU) 600 mg PO Q8H 10/18/22 [History Last Taken 10/18/22 09:00] Allergy/AdvReac Type Severity Reaction Status Date / Time No Known Allergies Allergy Verified 10/18/22 11:39 Family History Other Breast cancer Diabetes Surgical History (Updated 10/12/22 @ 08:49 by Mateus Orourke) History of adenoidectomy Social History Smoking Status: Never smoker alcohol intake: never History Elective abortions Hx Para 2 Spontaneous abortions Hx # Term Pregnancies Ectopic pregnancies Hx # Pregnancies Multiple births # of living children Assessment & Plan (1) headache: (2) Lactating mother: (3) Elevated BP without diagnosis of hypertension: PLAN: Plan 1) IV fluid bolus, reglan IVP, benadryl IVP, and flexeril PO for headache. Improved after medication and rating 2-3/10. No longer having visual disturbances. 2) BP elevated with two mild range and the rest normal. 3) Preeclampsia symptoms reviewed and when to return. Will follow up in office tomorrow to get BP cuff and take daily. 4) Mild elevation of uric acid and ALT. consulted and agrees with plan at this time. 5) Hgb 7.8, IV iron infusion given and to continue PO iron supplement at home.
== END 2022-10-18 14:58 | disposition home or self-care (01) ==
LOC: WPOUT 11:17 → WP 11:19
PROVIDERS: Referring Provider Advanced Practice Midwife; Visit Provider Advanced Practice Midwife
DX: O99.893 Other specified diseases and conditions complicating puerperium (principal); R51.9 Headache, unspecified; J45.909 Unspecified asthma, uncomplicated; R03.0 Elevated blood-pressure reading, without diagnosis of hypertension; O99.53 Diseases of the respiratory system complicating the puerperium
CPT/HCPCS: 96365; 96375; 96361; 36415; 80053; 84550; 85025; 99221; J1756; J7120; G0378